=== PATIENT | male | born 1950 | race African-American/Black ===

== ENCOUNTER 2023-09-05 12:34 | Inpatient (IN) | payer OTHER, MEDICAID ==
[~2023-09-05] VITALS: Ht 175.3 cm; Wt 56.4 kg
[2023-09-05 12:49] LABS: Basophils # (auto) 0.1 10 ^3/uL (0-0.2); Basophils % (auto) 0.6 % (0.0-2.0); Eosinophils # (auto) 0 10 ^3/uL (0-0.8); Hemoglobin 15.2 g/dL (13.5-17.5); Lymphocytes # (auto) 0.7 10 ^3/uL (0.4-5.4); Lymphocytes % (auto) 8.3 % (10.0-50.0); Mean Corpuscular Hemoglobin 28.4 pg (28.0-32.0); Mean Corpuscular Hgb Conc. 33.7 g/dL (32.0-36.0); Mean Corpuscular Volume 84.2 fL (80.0-100.0); Monocytes # (auto) 0.5 10 ^3/uL (0-1.3); Monocytes % (auto) 5.1 % (0.0-12.0); Neutrophils # (auto) 7.7 10 ^3/uL (1.6-8.6); Red Blood Cells 5.35 10^6/uL (4.5-5.90); Red Cell Distribution Width 13.2 % (11.8-14.3)
[2023-09-05 13:15] VITALS: PULSE 72; RESP 20; O2SAT 99
[2023-09-05 13:22] LABS: Urine Bacteria FEW /hpf (None Seen); Urine Blood Negative /uL (Negative); Urine Clarity Clear (Clear); Urine Color Colorless (Yellow); Urine Protein, UAD TRACE (Negative); Urine Specific Gravity 1.009 (1.001-1.035); Urine Urobilinogen Normal (Negative); Urine WBC 2 /hpf (0 - 3); Urine pH 8.5 (5.0-8.0)
[2023-09-05] MEDS: NITROGLYCERIN 0.4 MG SL TAB SL ONE (13:24)
[2023-09-05] MEDS: ASPirin 325 MG TAB PO ONE (13:24)
[2023-09-05 13:43] LABS: Alanine Aminotransferase 25 U/L (7-40); Albumin 4.4 g/dL (3.2-4.8); Alkaline Phosphatase 112 U/L (46-116); Anion Gap 9 (5-15); Aspartate Aminotransferase 30 U/L (13-40); BUN/Creatinine Ratio 9.5 (10.0-20.0); Bilirubin, Total 0.7 mg/dL (0.2-1.0); Blood Urea Nitrogen 8 mg/dL (9-23); Calcium 10.6 mg/dL (8.7-10.4); Carbon Dioxide 24 mmol/L (20-30); Chloride 101 mmol/L (98-107); Glucose 204 mg/dL (74-106); Potassium 3.6 mmol/L (3.5-5.1); Sodium 134 mmol/L (136-145); Total Protein 7.5 g/dL (5.7-8.2)
[2023-09-05] MEDS: LABETALOL HCL 5 MG/ML 4ML SYRINGE IV ONE (15:03)
[2023-09-05] MEDS ORDERED: NITROGLYCERIN 0.4 MG SL TAB SL PRN (18:00)
[2023-09-05] MEDS ORDERED: DEXTROSE (50%) 50ML SYRG IV PRN (18:00)
[2023-09-05] MEDS: cloNIDine HCL 0.1 MG TAB PO PRN (18:03)
[2023-09-05] MEDS: ONDANSETRON HCL 4 MG/2 ML VIAL IV PRN (18:03)
[2023-09-05] MEDS: cefTRIAXone 1GM/50ML D5W 50 ML IV ONE (18:04)
[2023-09-05] MEDS: MORPHINE SULFATE INJ 2 MG/ml SYRG IV PRN ×2 (18:05→20:16)
[2023-09-05 18:33] LABS: Triglycerides 44 mg/dL (< 150)
[2023-09-05 18:34] LABS: LDL Cholesterol 45 mg/dL (< 100)
[2023-09-05 18:35] LABS: Cholesterol 137 mg/dL (< 200); HDL Cholesterol 83 mg/dL (40-59)
[2023-09-05] MEDS: IOHEXOL 350 MG/ML 100ML IJ ONE ×2 (19:51)
[2023-09-05 19:52] VITALS: PULSE 99; RESP 16; O2SAT 96
[2023-09-05] MEDS: LISINOPRIL 20 MG TAB PO SCH (20:15)
[2023-09-05] MEDS: hydrALAZINE HCL 20 MG/ML VL IV PRN (22:22)
[2023-09-05] MEDS: ACCU-CHEK COMFORT CURVE STRIP VI SCH (22:22)
[2023-09-05] MEDS: PANTOPRAZOLE 40 MG TAB PO SCH (22:22)
[2023-09-05] MEDS: ATORVASTATIN 20 MG TAB PO SCH (22:22)
[2023-09-05] MEDS: InsuLIN REG 1unit/0.01ml Soln (100units/ml) SC SCH (22:31)
[2023-09-06 05:00] VITALS: BP 122/82; PULSE 107; RESP 19; TEMP 99.1; O2SAT 95
[2023-09-06 05:53] LABS: Basophils # (auto) 0 10 ^3/uL (0-0.2); Basophils % (auto) 0.3 % (0.0-2.0); Eosinophils # (auto) 0 10 ^3/uL (0-0.8); Hematocrit 45.2 % (41.0-53.0); Hemoglobin 15.1 g/dL (13.5-17.5); Lymphocytes # (auto) 0.7 10 ^3/uL (0.4-5.4); Lymphocytes % (auto) 4.9 % (10.0-50.0); Mean Corpuscular Hemoglobin 28.4 pg (28.0-32.0); Mean Corpuscular Hgb Conc. 33.4 g/dL (32.0-36.0); Mean Corpuscular Volume 85.1 fL (80.0-100.0); Monocytes # (auto) 1.3 10 ^3/uL (0-1.3); Monocytes % (auto) 8.4 % (0.0-12.0); Neutrophils % (auto) 86.4 % (37.0-80.0); Red Blood Cells 5.31 10^6/uL (4.5-5.90); Red Cell Distribution Width 13.2 % (11.8-14.3); White Blood Cell 15.1 10^3/uL (4.4-10.8)
[2023-09-06 06:12] LABS: Anion Gap 8 (5-15); Carbon Dioxide 26 mmol/L (20-30); Chloride 99 mmol/L (98-107); Potassium 3.6 mmol/L (3.5-5.1); Sodium 133 mmol/L (136-145)
[2023-09-06 06:13] LABS: Calcium 9.9 mg/dL (8.5-10.1)
[2023-09-06 06:19] LABS: BUN/Creatinine Ratio 8.6 (10.0-20.0); Blood Urea Nitrogen 8 mg/dL (9-23); Glucose 131 mg/dL (74-106)
[2023-09-06 08:00] VITALS: PULSE 108
[2023-09-06 08:40] VITALS: BP 134/84; PULSE 106; RESP 15; TEMP 98.6; O2SAT 98
[2023-09-06] MEDS: ENOXAPARIN SOD 40 MG/0.4 ML SYRINGE SC SCH (08:57)
[2023-09-06] MEDS: ASPirin 81 mg TAB PO SCH (08:58)
[2023-09-06 16:50] VITALS: BP 137/90; PULSE 115; RESP 16; TEMP 99.5; O2SAT 97
[2023-09-06 20:00] VITALS: PULSE 117; PULSE 120; RESP 16
[2023-09-06 23:59] VITALS: BP 127/85; PULSE 114; RESP 18; TEMP 98; O2SAT 97
[2023-09-07] VITALS (7 sets, daily range): BP systolic 103–114; BP diastolic 69–82; PULSE 72–116; RESP 14–20; TEMP 98.4–98.6; O2SAT 96–100
[2023-09-07 06:47] LABS: Basophils # (auto) 0 10 ^3/uL (0-0.2); Basophils % (auto) 0.2 % (0.0-2.0); Eosinophils # (auto) 0 10 ^3/uL (0-0.8); Hematocrit 45.9 % (41.0-53.0); Hemoglobin 14.9 g/dL (13.5-17.5); Lymphocytes # (auto) 1.1 10 ^3/uL (0.4-5.4); Lymphocytes % (auto) 5.3 % (10.0-50.0); Mean Corpuscular Hemoglobin 27.6 pg (28.0-32.0); Mean Corpuscular Hgb Conc. 32.5 g/dL (32.0-36.0); Mean Corpuscular Volume 84.8 fL (80.0-100.0); Monocytes # (auto) 1.7 10 ^3/uL (0-1.3); Monocytes % (auto) 8.4 % (0.0-12.0); Neutrophils # (auto) 17.3 10 ^3/uL (1.6-8.6); Neutrophils % (auto) 86.1 % (37.0-80.0); Red Blood Cells 5.41 10^6/uL (4.5-5.90); Red Cell Distribution Width 13.5 % (11.8-14.3); White Blood Cell 20.1 10^3/uL (4.4-10.8)
[2023-09-07 06:59] LABS: INR 1.15 (0.9-1.15); Partial Thromboplastin Time 39.3 SEC (24.5-34.5)
[2023-09-07 07:02] LABS: Alanine Aminotransferase 15 U/L (7-40); Alkaline Phosphatase 99 U/L (46-116); Anion Gap 6 (5-15); Aspartate Aminotransferase 21 U/L (13-40); BUN/Creatinine Ratio 14.5 (10.0-20.0); Blood Urea Nitrogen 18 mg/dL (9-23); Calcium 9.9 mg/dL (8.5-10.1); Carbon Dioxide 27 mmol/L (20-30); Chloride 98 mmol/L (98-107); Glucose 118 mg/dL (74-106); Sodium 131 mmol/L (136-145)
[2023-09-07 07:03] LABS: Bilirubin, Total 1.1 mg/dL (0.2-1.0); Total Protein 7.1 g/dL (5.7-8.2)
[2023-09-07] MEDS: SUCRALFATE 1 GM/10 ML ORAL SUSP PO SCH (07:30)
[2023-09-07] MEDS ORDERED: CLINIMIX PER PHARMACY 0 ML IV SCH (16:00)
[2023-09-07 20:01] LABS: Magnesium 2.1 mg/dL (1.6-2.6)
[2023-09-07] MEDS: AMINO ACID INFUSION IN D10W 1,000 ML IV SCH (20:45)
[2023-09-07 20:46] LABS: Phosphorus 3.8 mg/dL (2.4-5.1)
[2023-09-07] MEDS: PIPERACILLIN-TAZOB 3.375GM 100 ML IV SCH (21:13)
[2023-09-08 04:00] VITALS: BP 104/72; PULSE 92; RESP 21; TEMP 98.2; O2SAT 98
[2023-09-08 07:07] LABS: Alanine Aminotransferase 33 U/L (7-40); Albumin 3.8 g/dL (3.2-4.8); Alkaline Phosphatase 90 U/L (46-116); Anion Gap 7 (5-15); Aspartate Aminotransferase 46 U/L (13-40); BUN/Creatinine Ratio 22.3 (10.0-20.0); Bilirubin, Total 0.8 mg/dL (0.2-1.0); Carbon Dioxide 25 mmol/L (20-30); Chloride 97 mmol/L (98-107); Glucose 130 mg/dL (74-106); Lipase 39 U/L (12-53); Magnesium 2.2 mg/dL (1.6-2.6); Phosphorus 3.1 mg/dL (2.4-5.1); Potassium 3.5 mmol/L (3.5-5.1); Sodium 129 mmol/L (136-145); Total Protein 6.9 g/dL (5.7-8.2)
[2023-09-08 07:08] LABS: Blood Urea Nitrogen 29 mg/dL (9-23)
[2023-09-08 07:11] LABS: Basophils # (auto) 0 10 ^3/uL (0-0.2); Basophils % (auto) 0.2 % (0.0-2.0); Eosinophils # (auto) 0 10 ^3/uL (0-0.8); Eosinophils % (auto) 0.3 % (0.0-7.0); Hematocrit 41.6 % (41.0-53.0); Hemoglobin 13.8 g/dL (13.5-17.5); Lymphocytes # (auto) 1.1 10 ^3/uL (0.4-5.4); Lymphocytes % (auto) 7.5 % (10.0-50.0); Mean Corpuscular Hemoglobin 28.3 pg (28.0-32.0); Mean Corpuscular Hgb Conc. 33.3 g/dL (32.0-36.0); Mean Corpuscular Volume 85.2 fL (80.0-100.0); Monocytes # (auto) 1.2 10 ^3/uL (0-1.3); Monocytes % (auto) 8.5 % (0.0-12.0); Neutrophils % (auto) 83.5 % (37.0-80.0); Red Blood Cells 4.88 10^6/uL (4.5-5.90); Red Cell Distribution Width 13.2 % (11.8-14.3); White Blood Cell 14.4 10^3/uL (4.4-10.8)
[2023-09-08 07:30] VITALS: BP 105/69; PULSE 76; PULSE 93; TEMP 36.8
[2023-09-08] MEDS: BUPIVACAINE 0.25% INJ 50ML VIAL ONE (07:51)
[2023-09-08] MEDS: LIDOCAINE 1% HCL (LOCAL ANESTH.) INJ 20ML MDV ONE (07:51)
[2023-09-08] MEDS: ceFAZolin 1GM/50ML 50 ML IV ONE (07:59)
[2023-09-08] MEDS: SUCCINYLCHOLINE CHLORIDE 20 MG/ML 10ML VIAL IV ONE (08:10)
[2023-09-08] MEDS ORDERED: MIDAZOLAM HCL 2MG/2ML 2ml VIAL (1mg/ml) ONE (08:11)
[2023-09-08] MEDS ORDERED: fentaNYL CITRATE 100 MCG/2 ML VL ONE (08:11)
[2023-09-08] MEDS ORDERED: ROCURONIUM 10MG/ML 10ML VIAL IV ONE (08:14)
[2023-09-08] MEDS ORDERED: ETOMIDATE (2MG/ML) 20ML VIAL IV ONE (08:18)
[2023-09-08] MEDS ORDERED: HYDROCORTISONE SOD SUCC 100 MG/2ML INJ VIAL ONE (08:28)
[2023-09-08] MEDS ORDERED: NEOSTIGMINE 1 MG/ML INJ (10mg/10ML VIAL) ONE (09:25)
[2023-09-08] MEDS ORDERED: ONDANSETRON HCL 4 MG/2 ML VIAL ONE (09:28)
[2023-09-08] MEDS: BUPIVACAINE 0.25% INJ 50ML VIAL IJ ONE (09:39)
[2023-09-08 10:53] VITALS: BP 122/74; PULSE 89; RESP 19; TEMP 98.4; O2SAT 94
[2023-09-08] MEDS: PANTOPRAZOLE 40 MG TAB PO SCH (12:44)
[2023-09-08] MEDS ORDERED: HYDROmorphone HCL 2 MG/ML VL/or syr IV PRN ×2 (15:30)
[2023-09-08] MEDS ORDERED: ONDANSETRON HCL 4 MG/2 ML VIAL IV PRN (15:30)
[2023-09-08 17:14] VITALS: BP 108/70; PULSE 88; RESP 20; TEMP 98.2; O2SAT 98
[2023-09-08 20:00] VITALS: BP 131/82; PULSE 85; PULSE 86; RESP 18; TEMP 97.8; O2SAT 96
[2023-09-08 22:00] VITALS: BP 131/82; PULSE 85; TEMP 97.8; O2SAT 96
[2023-09-09] VITALS (7 sets, daily range): BP systolic 103–116; BP diastolic 66–84; PULSE 70–91; RESP 18–22; TEMP 97.9–98.7; O2SAT 93–98
[2023-09-09 06:56] LABS: Basophils # (auto) 0 10 ^3/uL (0-0.2); Basophils % (auto) 0.2 % (0.0-2.0); Eosinophils # (auto) 0 10 ^3/uL (0-0.8); Eosinophils % (auto) 0.3 % (0.0-7.0); Hematocrit 39.2 % (41.0-53.0); Lymphocytes % (auto) 11.6 % (10.0-50.0); Mean Corpuscular Hemoglobin 28.2 pg (28.0-32.0); Mean Corpuscular Hgb Conc. 33.3 g/dL (32.0-36.0); Mean Corpuscular Volume 84.7 fL (80.0-100.0); Monocytes # (auto) 0.8 10 ^3/uL (0-1.3); Monocytes % (auto) 9.2 % (0.0-12.0); Neutrophils # (auto) 6.7 10 ^3/uL (1.6-8.6); Neutrophils % (auto) 78.7 % (37.0-80.0); Red Blood Cells 4.62 10^6/uL (4.5-5.90); Red Cell Distribution Width 13.1 % (11.8-14.3); White Blood Cell 8.5 10^3/uL (4.4-10.8)
[2023-09-09 07:08] LABS: Alanine Aminotransferase 71 U/L (7-40); Albumin 3.5 g/dL (3.2-4.8); Alkaline Phosphatase 98 U/L (46-116); Anion Gap 7 (5-15); Aspartate Aminotransferase 100 U/L (13-40); BUN/Creatinine Ratio 17.6 (10.0-20.0); Blood Urea Nitrogen 18 mg/dL (9-23); Calcium 8.9 mg/dL (8.7-10.4); Carbon Dioxide 25 mmol/L (20-30); Chloride 98 mmol/L (98-107); Glucose 135 mg/dL (74-106); Magnesium 2.1 mg/dL (1.6-2.6); Potassium 3.3 mmol/L (3.5-5.1); Sodium 130 mmol/L (136-145)
[2023-09-09 07:09] LABS: Bilirubin, Total 0.6 mg/dL (0.2-1.0); Total Protein 6.3 g/dL (5.7-8.2)
[2023-09-09] MEDS: POTASSIUM CHL 20MEQ/100ML 100 ML IV ONE (12:45)
[2023-09-10] VITALS (7 sets, daily range): BP systolic 111–126; BP diastolic 58–85; PULSE 79–89; RESP 16–18; TEMP 97.7–98.4; O2SAT 94–100
[2023-09-10 06:07] LABS: Basophils # (auto) 0 10 ^3/uL (0-0.2); Basophils % (auto) 0.5 % (0.0-2.0); Eosinophils # (auto) 0.1 10 ^3/uL (0-0.8); Eosinophils % (auto) 1.9 % (0.0-7.0); Hematocrit 35.6 % (41.0-53.0); Hemoglobin 12.1 g/dL (13.5-17.5); Lymphocytes % (auto) 17.5 % (10.0-50.0); Mean Corpuscular Hemoglobin 28.6 pg (28.0-32.0); Mean Corpuscular Hgb Conc. 33.9 g/dL (32.0-36.0); Mean Corpuscular Volume 84.3 fL (80.0-100.0); Monocytes # (auto) 0.7 10 ^3/uL (0-1.3); Monocytes % (auto) 13.5 % (0.0-12.0); Neutrophils # (auto) 3.6 10 ^3/uL (1.6-8.6); Neutrophils % (auto) 66.6 % (37.0-80.0); Red Blood Cells 4.23 10^6/uL (4.5-5.90); Red Cell Distribution Width 12.7 % (11.8-14.3); White Blood Cell 5.4 10^3/uL (4.4-10.8)
[2023-09-10 06:17] LABS: Alanine Aminotransferase 96 U/L (7-40); Albumin 3.3 g/dL (3.2-4.8); Alkaline Phosphatase 99 U/L (46-116); Anion Gap 6 (5-15); Aspartate Aminotransferase 104 U/L (13-40); BUN/Creatinine Ratio 16.7 (10.0-20.0); Bilirubin, Total 0.6 mg/dL (0.2-1.0); Blood Urea Nitrogen 15 mg/dL (9-23); Calcium 8.7 mg/dL (8.7-10.4); Carbon Dioxide 26 mmol/L (20-30); Chloride 100 mmol/L (98-107); Glucose 114 mg/dL (74-106); Magnesium 1.9 mg/dL (1.6-2.6); Phosphorus 1.8 mg/dL (2.4-5.1); Potassium 3.2 mmol/L (3.5-5.1); Sodium 132 mmol/L (136-145); Total Protein 6.1 g/dL (5.7-8.2)
[2023-09-10] MEDS: POTASSIUM CHL 20 Meq TABLET PO ONE (16:19)
[2023-09-11 05:00] VITALS: BP 115/73; PULSE 81; RESP 20; TEMP 98.2; O2SAT 98
[2023-09-11 05:58] LABS: Basophils # (auto) 0 10 ^3/uL (0-0.2); Basophils % (auto) 0.6 % (0.0-2.0); Eosinophils # (auto) 0.1 10 ^3/uL (0-0.8); Eosinophils % (auto) 2.9 % (0.0-7.0); Hematocrit 34.9 % (41.0-53.0); Hemoglobin 11.8 g/dL (13.5-17.5); Lymphocytes # (auto) 1.2 10 ^3/uL (0.4-5.4); Lymphocytes % (auto) 22.9 % (10.0-50.0); Mean Corpuscular Hemoglobin 28.6 pg (28.0-32.0); Mean Corpuscular Hgb Conc. 33.9 g/dL (32.0-36.0); Mean Corpuscular Volume 84.6 fL (80.0-100.0); Monocytes # (auto) 0.7 10 ^3/uL (0-1.3); Monocytes % (auto) 14.1 % (0.0-12.0); Neutrophils # (auto) 3.1 10 ^3/uL (1.6-8.6); Neutrophils % (auto) 59.5 % (37.0-80.0); Nucleated Red Blood Cells % 0.1 %; Red Blood Cells 4.13 10^6/uL (4.5-5.90); Red Cell Distribution Width 12.7 % (11.8-14.3); White Blood Cell 5.1 10^3/uL (4.4-10.8)
[2023-09-11 06:09] LABS: Chloride 103 mmol/L (98-107); Potassium 3.7 mmol/L (3.5-5.1); Sodium 133 mmol/L (136-145)
[2023-09-11 06:10] LABS: Anion Gap 7 (5-15); Calcium 8.8 mg/dL (8.7-10.4); Carbon Dioxide 23 mmol/L (20-30)
[2023-09-11 06:15] LABS: BUN/Creatinine Ratio 14.1 (10.0-20.0); Blood Urea Nitrogen 11 mg/dL (9-23); Glucose 86 mg/dL (74-106)
[2023-09-11 08:00] VITALS: PULSE 78; PULSE 81; RESP 17; O2SAT 99
[2023-09-11 09:00] VITALS: BP 140/83; PULSE 78; RESP 17; TEMP 98.3; O2SAT 99
[2023-09-11 13:00] VITALS: BP 115/80; PULSE 83; RESP 16; TEMP 98.2; O2SAT 99
[2023-09-11 17:00] VITALS: BP 129/89; PULSE 81; RESP 17; TEMP 98.2; O2SAT 98
[2023-09-11 20:00] VITALS: PULSE 77; PULSE 82; RESP 17; O2SAT 98
[2023-09-12 05:00] VITALS: BP_SYST 120; BP_SYST 139; BP_DIAS 57; BP_DIAS 91; PULSE 79; PULSE 83; RESP 18; RESP 20; TEMP 97.8; TEMP 98.1; O2SAT 100; O2SAT 98
[2023-09-12 08:00] VITALS: PULSE 70; RESP 16; O2SAT 99
[2023-09-12 09:05] VITALS: BP 143/91; PULSE 87; RESP 17; TEMP 98; O2SAT 100
[2023-09-12 10:58] VITALS: BP 143/91; PULSE 76; TEMP 36.7
== END 2023-09-12 12:00 | disposition home or self-care (01) | DRG 417 ==
LOC: ER 12:34 → TELE 17:51 → TELE-CENTR 22:36
PROVIDERS: ADMIT Hospitalist; ATTEND Internal Medicine
PROC: 0FT44ZZ Resection of Gallbladder, Percutaneous Endoscopic Approach (ICD-10-PCS; principal; 2023-09-08 08:11)
DX: K80.00 Calculus of gallbladder with acute cholecystitis without obstruction (principal); K65.1 Peritoneal abscess; I11.0 Hypertensive heart disease with heart failure; E11.9 Type 2 diabetes mellitus without complications; I77.810 Thoracic aortic ectasia; I50.9 Heart failure, unspecified; Z83.3 Family history of diabetes mellitus; Z82.49 Family history of ischemic heart disease and other diseases of the circulatory system
CPT/HCPCS: 36415; 71045; 71275; 74181; 76705; 80048; 80053; 80061; 81001; 82962; 83036; 83690; 83735; 84100; 84484; 85025; 85610; 85730; 86850; 86900; 86901; 93005; 93306; 97110; 97116; 97163; 97530; G0378; J0330; J1815; J2001; J2250; J2405; J2543; J3480; J3490

== ENCOUNTER 2024-07-09 15:55 | Emergency (ER) | payer OTHER, MEDICAID ==
[~2024-07-09] VITALS: Ht 182.9 cm; Wt 49.6 kg
--- NOTE | 2024-07-09 16:51 | DVH ---
XY CHEST PORTABLE, HISTORY: weak COMPARISON: XY CHEST PORTABLE on DOS: 09/05/23 XY CHEST PORTABLE on DOS: 09/05/23 TECHNICAL DATA: 1 view of the chest was obtained. FINDINGS: Lines and tubes: None Cardiomediastinal silhouette: normal Pulmonary vasculature: normal Lung expansion: Increased Lung airspace: Left perihilar airspace opacity. Lung interstitium: normal Pleura: normal Pneumothorax: no Bones: Unremarkable Other: no IMPRESSION: Left perihilar airspace opacity could be pneumonia.
[2024-07-09 16:54] VITALS: BP 107/73; PULSE 100; RESP 20; O2SAT 100
--- NOTE | 2024-07-09 17:03 | ED.PDOC ---
History of Present Illness HPI Comments 74y M who presents to the ED for chief complaint of generalized weakness. Per pt , pt has history of lung cancer and [facility] [place] and states since pt last radiation treatment on Jun 20, 2024, pt has been getting progressively worse at home. Pt has been having malaise, fever, cough, headache, and decreased appetite since and getting progressively worse since. Pt states pt has also had limited appetite and states over the past few days, he has only been able to eat "4-5 bites." Pt also states pt had radiation treatment but missed treatments on July 07 due to increased malaise and weakness. Pt otherwise has stable vitals in the ED. Pt otherwise denies any other symptoms at this time. Chief Complaint: Flu like Time Seen by MD: 16:04 Primary Care Provider: NONE Reviewed Notes: Nurses Notes Allergies: Coded Allergies: NO KNOWN ALLERGIES (Unverified , 09/05/23) Home Meds Unable to Obtain Active Prescriptions or Reported Meds Information Source: Patient, Spouse Mode of Arrival: Ambulatory Past Medical History PAST MEDICAL HISTORY: CHF, DM, HTN Family History Family History: Reviewed,noncontributory to illness Social History Smoker: Non-Smoker Alcohol: Denies ETOH Use Drugs: Denies Drug Use Lives In: Home Constitutional: reports: fatigue, malaise, weakness; denies: chills, diaphoresis, fever, sweats, others EENTM: denies: blurred vision, double vision, ear bleeding, ear discharge, ear drainage, ear pain, ear ringing, eye pain, eye redness, hearing loss, mouth pain, mouth swelling, nasal discharge, nose bleeding, nose congestion, nose pain, photophobia, tearing, throat pain, throat swelling, voice changes, others Respiratory: reports: cough; denies: hemoptysis, orthopnea, SOB at rest, shortness of breath, SOB with excertion, stridor, wheezing, others Cardiovascular: denies: chest pain, dizzy spells, diaphoresis, Dyspnea on exertion, edema, irregular heart beat, left arm pain, lightheadedness, palpitations, PND, syncope, others Gastrointestinal: denies: abdomen distended, abdominal pain, blood streaked bowels, constipated, diarrhea, dysphagia, difficulty swallowing, hematemesis, melena, nausea, poor appetite, poor fluid intake, rectal bleeding, rectal pain, vomiting, others Genitourinary: denies: burning, dysuria, flank pain, frequency, hematuria, incontinence, penile discharge, penile sore, pain, testicle pain, testicle swelling, urgency, others Neurological: reports: headache; denies: dizziness, fainting, left sided numbness, left sided weakness, numbness, paresthesia, pre-existing deficit, right sided numbness, right sided weakness, seizure, speech problems, tingling, tremors, weakness, others Musculoskeletal: denies: back pain, gout, joint pain, joint swelling, muscle pain, muscle stiffness, neck pain, others Integumetry: denies: bruises, change in color, change in hair/nails, dryness, laceration, lesions, lumps, rash, wounds, others Allergic/Immunocompromised: denies: Difficulty Healing, Frequent Infections, Hives, Itching, others Hematologic/Lymphatic: denies: anemia, blood clots, easy bleeding, easy bruising, swollen glands, others Endocrine: denies: excessive hunger, excessive sweating, excessive thirst, excessive urination, flushing, intolerance to cold, intolerance to heat, unexplained weight gain, unexplained weight loss, others Psychiatric: denies: anxiety, bipolar disorder, depression, hopeless, panic disorder, schizophrenia, sleepless, suicidal, others All Other Systems: Reviewed and Negative Physical Exam General Appearance: Other (Thin elderly male, tired appearing, in no significant distress otherwise) HEENT: Normal ENT Inspection, Pharynx Normal, TMs Normal Neck: Full Range of Motion, Non-Tender, Normal, Normal Inspection Respiratory: Chest Non-Tender, Lungs Clear, No Accessory Muscle Use, No Respiratory Distress, Normal Breath Sounds Cardiovascular: No Edema, Normal Peripheral Pulses, Regular Rate/Rhythm Breast Exam: Deferred Gastrointestinal: Non Tender, Normal Bowel Sounds, Soft Genitalia: Deferred Pelvic: Deferred Rectal: Deferred Extremities: No calf tenderness, Normal capillary refill, Normal inspection, Normal range of motion, Non-tender, No pedal edema Musculoskeletal : Apperance: Normal Neurologic: Alert, quantitative analyst developer II-XII nml as Tested, No Motor Deficits, Normal Affect, Normal Mood, No Sensory Deficits Cerebellar Function: NOT DONE Reflexes: NOT DONE Skin: Dry, Normal Color, Warm Lymphatic: No Adenopathy Was a procedure done? Was a procedure done?: No Differential Dx Considerations may include: dehydration, anemia, sepsis, URI, PNA, urosepsis, generalized weakness, X-Ray, Labs, Meds, VS Vital Signs Date Time Temp Pulse Resp B/P (MAP) Pulse Ox O2 Delivery O2 Flow Rate FiO2 07/09/24 16:54 99.0 100 20 107/73 (84) 100 Lab Test 07/09/24 16:48 Range/Units White Blood Count 6.8 4.4-10.8 10^3/uL Red Blood Count 5.18 4.5-5.90 10^6/uL Hemoglobin 14.2 13.5-17.5 g/dL Hematocrit 41.3 41.0-53.0 % Mean Corpuscular Volume 79.7 L 80.0-100.0 fL Mean Corpuscular Hemoglobin 27.4 L 28.0-32.0 pg Mean Corpuscular Hemoglobin Concent 34.3 32.0-36.0 g/dL Red Cell Distribution Width 13.8 11.8-14.3 % Platelet Count 280 140-450 10^3/uL Mean Platelet Volume 7.5 6.9-10.8 fL Neutrophils (%) (Auto) 73.2 37.0-80.0 % Lymphocytes (%) (Auto) 15.4 10.0-50.0 % Monocytes (%) (Auto) 10.0 0.0-12.0 % Eosinophils (%) (Auto) 0.9 0.0-7.0 % Basophils (%) (Auto) 0.5 0.0-2.0 % Neutrophils # (Auto) 5.0 1.6-8.6 10 ^3/uL Lymphocytes # (Auto) 1.1 0.4-5.4 10 ^3/uL Monocytes # (Auto) 0.7 0-1.3 10 ^3/uL Eosinophils # (Auto) 0.1 0-0.8 10 ^3/uL Basophils # (Auto) 0 0-0.2 10 ^3/uL Nucleated Red Blood Cells 0.1 % Sodium Level 135 L 136-145 mmol/L Potassium Level 4.2 3.5-5.1 mmol/L Chloride Level 101 98-107 mmol/L Carbon Dioxide Level 31 20-31 mmol/L Anion Gap 3 L 5-15 Blood Urea Nitrogen 11 9-23 mg/dL Creatinine 1.12 0.700-1.30 mg/dL Glomerular Filtration Rate Calc 69 >90 mL/min BUN/Creatinine Ratio 9.8 L 10.0-20.0 Serum Glucose 143 H 74-106 mg/dL Lactic Acid Level 1.8 0.4-2.0 mmol/L Calcium Level 10.2 8.7-10.4 mg/dL Total Bilirubin 0.4 0.2-1.0 mg/dL Direct Bilirubin 0.2 <0.3 mg/dL Aspartate Amino Transferase (AST) 27 13-40 U/L Alanine Aminotransferase (ALT) 24 7-40 U/L Alkaline Phosphatase 168 H 46-116 U/L Troponin I High Sensitivity 5 </=54 ng/L B-Type Natriuretic Peptide 84.00 0-100 pg/mL Total Protein 7.6 5.7-8.2 g/dL Albumin 4.2 3.2-4.8 g/dL Lipase 55 H 12-53 U/L Thyroid Stimulating Hormone (TSH) 0.74 0.55-4.78 uIU/mL [place] [id number] Ph: [phone] DIAGNOSTIC IMAGING Diagnostic Imaging Report : [id number] Signed PATIENT: EMILY SCOTT ACCT: [id number] UNIT: [id number] : 1950 LOC: ER ROOM / BED: / AGE / SEX: 74 / M ADM STATUS: REG ER SERVICE [id number] ORDERING PHYSICIAN: EMIR HOFF MD PROCEDURE(s): CXRP - CHEST PORTABLE REASON: weak ORDER NUMBER(s): [id number], ACCESSION NUMBER(s): [id number] XY CHEST PORTABLE, HISTORY: weak COMPARISON: XY CHEST PORTABLE on DOS: 09/05/23 XY CHEST PORTABLE on DOS: 09/05/23 TECHNICAL DATA: 1 view of the chest was obtained. FINDINGS: Lines and tubes: None Cardiomediastinal silhouette: normal Pulmonary vasculature: normal Lung expansion: Increased Lung airspace: Left perihilar airspace opacity. Lung interstitium: normal Pleura: normal Pneumothorax: no Bones: Unremarkable Other: no IMPRESSION: Left perihilar airspace opacity could be pneumonia. ATED BY: CRISTIAN BARBER MD DICTATED DATE/TIME: 07/09/241654 SIGNED BY: CRISTIAN BARBER MD SIGNED DATE/TIME: 07/09/241654 CC: X-Ray, Labs, Meds, VS Comment 74-year-old male with a history of lung cancer last received chemo approximately three weeks ago but has since opted out of receiving further chemo here today for generalized weakness and failure to thrive. Labs overall reassuring without evidence of significant leukocytosis to suggest an infection, significant anemia to require a transfusion, nor evidence of new renal dysfunction. I had ordered Zofran, morphine and saline for the patient however the patient and his partner stated they wanted to leave the hospital and instead go to [facility] where the patient receives all of his care. I informed them that my plan would be to admit the patient to the hospital for hydration and further workup of his weakness such as cultures but they still stated that they would prefer to leave regardless of the risks of potential further deterioration and even . They stated that they are driving straight to the [facility] from here. The patient then left the hospital with his partner against medical advice. Time of 1ST Reevaluation: 16:35 Reevaluation 1ST: Unchanged Patient Education/Counseling: Diagnosis, Treatment, Prognosis, Need For Follow Up Family Education/Counseling: Diagnosis, Treatment, Prognosis, Need For Follow Up Departure 1 Departure Time of Disposition: 20:38 Impression: Primary Impression: Failure to thrive Additional Impression: History of lung cancer Disposition: 07 LEFT AGAINST MEDICAL ADVICE Condition: Guarded e-Prescriptions Unable to Obtain Active Prescriptions or Reported Meds Discharged With: Self, Relative Critical Care Note Critical Care Time?: No Stability Stability form required: No Heart Score Heart Score: Heart Score Response (Comments) Value History N/A 0 EKG N/A 0 Age N/A 0 Risk Factors N/A 0 Troponin N/A 0 Total 0 I personally scribed for ER ([email or web address]) on 07/09/24 at 17:27. Electronically submitted by Mindy Maradiaga ([email or web address]). EMIR HOFF MD Jul 09, 2024 17:03 ER Jul 09, 2024 17:27
[2024-07-09 17:32] LABS: Basophils # (auto) 0 10 ^3/uL (0-0.2); Basophils % (auto) 0.5 % (0.0-2.0); Eosinophils # (auto) 0.1 10 ^3/uL (0-0.8); Eosinophils % (auto) 0.9 % (0.0-7.0); Hematocrit 41.3 % (41.0-53.0); Hemoglobin 14.2 g/dL (13.5-17.5); Lymphocytes # (auto) 1.1 10 ^3/uL (0.4-5.4); Lymphocytes % (auto) 15.4 % (10.0-50.0); Mean Corpuscular Hemoglobin 27.4 pg (28.0-32.0); Mean Corpuscular Hgb Conc. 34.3 g/dL (32.0-36.0); Mean Corpuscular Volume 79.7 fL (80.0-100.0); Monocytes # (auto) 0.7 10 ^3/uL (0-1.3); Neutrophils % (auto) 73.2 % (37.0-80.0); Nucleated Red Blood Cells % 0.1 %; Platelet Count (auto) 280 10^3/uL (140-450); Red Blood Cells 5.18 10^6/uL (4.5-5.90); Red Cell Distribution Width 13.8 % (11.8-14.3); White Blood Cell 6.8 10^3/uL (4.4-10.8)
[2024-07-09 17:45] LABS: Alanine Aminotransferase 24 U/L (7-40); Albumin 4.2 g/dL (3.2-4.8); Anion Gap 3 (5-15); Aspartate Aminotransferase 27 U/L (13-40); BUN/Creatinine Ratio 9.8 (10.0-20.0); Blood Urea Nitrogen 11 mg/dL (9-23); Calcium 10.2 mg/dL (8.7-10.4); Carbon Dioxide 31 mmol/L (20-31); Chloride 101 mmol/L (98-107); Potassium 4.2 mmol/L (3.5-5.1)
[2024-07-09 17:46] LABS: Bilirubin, Total 0.4 mg/dL (0.2-1.0); Total Protein 7.6 g/dL (5.7-8.2)
[2024-07-09 18:05] LABS: Alkaline Phosphatase 168 U/L (46-116); Glucose 143 mg/dL (74-106); Sodium 135 mmol/L (136-145)
[2024-07-09 18:13] LABS: Bilirubin, Direct 0.2 mg/dL (<0.3)
[2024-07-09] MEDS ORDERED: ONDANSETRON HCL 4 MG/2 ML VIAL IV ONE (18:45)
[2024-07-09] MEDS ORDERED: SODIUM CHLORIDE 0.9% 1,000 ML IV ONE (18:45)
[2024-07-09] MEDS ORDERED: MORPHINE SULFATE 4 MG/ML SYR/VIAL IV ONE (18:45)
== END 2024-07-09 20:41 | disposition left against medical advice (07) ==
LOC: ER 15:55
DX: R62.7 Adult failure to thrive (principal); I11.0 Hypertensive heart disease with heart failure; I50.9 Heart failure, unspecified; E11.9 Type 2 diabetes mellitus without complications; R53.1 Weakness; R53.81 Other malaise; R50.9 Fever, unspecified; R05.9 Cough, unspecified; R51.9 Headache, unspecified; Z85.118 Personal history of other malignant neoplasm of bronchus and lung
CPT/HCPCS: 36415; 71045; 80048; 80076; 83605; 83690; 83880; 84443; 84484; 85025

== ENCOUNTER 2024-09-03 15:35 | Inpatient (IN) | payer OTHER, MEDICAID ==
[~2024-09-03] VITALS: Ht 160 cm; Wt 62.9 kg
--- NOTE | 2024-09-03 15:40 | ED.PDOC ---
History of Present Illness HPI Comments 74-year-old male with PMHx Lung Cancer, COPD, DM, HTN, HLD presents with a chief complaint of SOB x 3 days. Patient was sating at 89% on room air according to EMS when they arrived on scene. Patient was given 3 albuterol treatments and reports improvement with his breathing. Patient is currently on a breathing treatment on arrival to ER. Patient was heard to have Rhonchi per EMS. Patient endorses smoking cigarettes and marijuana. No other symptoms or modifying factors present at this time. Chief Complaint: Shortness of Breath Time Seen by MD: 15:31 Primary Care Provider: NONE Reviewed Notes: Medications, Allergies Allergies: Coded Allergies: NO KNOWN ALLERGIES (Unverified , 09/05/23) Home Meds Unable to Obtain Active Prescriptions or Reported Meds Information Source: Patient, Emergency Med Personnel Mode of Arrival: EMS Severity: Moderate Timing: Days Duration: Since onset Prehospital treatment: Breathing Tx, Oxygen Past Medical History PAST MEDICAL HISTORY: Cancer, CHF, COPD, DM, High Lipids, HTN Surgical History: Cholecystectomy Surgical History (Other): CATARACTS Family History Family History: Reviewed,noncontributory to illness Social History Smoker: Cigarettes Alcohol: Denies ETOH Use Drugs: Marijuana Lives In: Home Constitutional: denies: chills, diaphoresis, fatigue, fever, malaise, sweats, weakness, others EENTM: denies: blurred vision, double vision, ear bleeding, ear discharge, ear drainage, ear pain, ear ringing, eye pain, eye redness, hearing loss, mouth pain, mouth swelling, nasal discharge, nose bleeding, nose congestion, nose pain, photophobia, tearing, throat pain, throat swelling, voice changes, others Respiratory: reports: shortness of breath; denies: cough, hemoptysis, orthopnea, SOB at rest, SOB with excertion, stridor, wheezing, others Cardiovascular: denies: chest pain, dizzy spells, diaphoresis, Dyspnea on exertion, edema, irregular heart beat, left arm pain, lightheadedness, palpitations, PND, syncope, others Gastrointestinal: denies: abdomen distended, abdominal pain, blood streaked bowels, constipated, diarrhea, dysphagia, difficulty swallowing, hematemesis, melena, nausea, poor appetite, poor fluid intake, rectal bleeding, rectal pain, vomiting, others Genitourinary: denies: burning, dysuria, flank pain, frequency, hematuria, incontinence, penile discharge, penile sore, pain, testicle pain, testicle swelling, urgency, others Neurological: denies: dizziness, fainting, headache, left sided numbness, left sided weakness, numbness, paresthesia, pre-existing deficit, right sided numbness, right sided weakness, seizure, speech problems, tingling, tremors, weakness, others Musculoskeletal: denies: back pain, gout, joint pain, joint swelling, muscle pain, muscle stiffness, neck pain, others Integumetry: denies: bruises, change in color, change in hair/nails, dryness, laceration, lesions, lumps, rash, wounds, others Allergic/Immunocompromised: denies: Difficulty Healing, Frequent Infections, Hives, Itching, others Hematologic/Lymphatic: denies: anemia, blood clots, easy bleeding, easy bruising, swollen glands, others Endocrine: denies: excessive hunger, excessive sweating, excessive thirst, excessive urination, flushing, intolerance to cold, intolerance to heat, unexplained weight gain, unexplained weight loss, others Psychiatric: denies: anxiety, bipolar disorder, depression, hopeless, panic disorder, schizophrenia, sleepless, suicidal, others All Other Systems: Reviewed and Negative Physical Exam General Appearance: Moderate Distress HEENT: Normal ENT Inspection, Pharynx Normal, TMs Normal Neck: Full Range of Motion, Non-Tender, Normal, Normal Inspection Respiratory: Chest Non-Tender, Decreased Breath Sounds, No Accessory Muscle Use, Respiratory Distress, Rhonchi, Wheezing Cardiovascular: No Edema, No JVD, No Murmur, No Gallop, Tachycardia Breast Exam: Deferred Gastrointestinal: No Organomegaly, Non Tender, No Pulsatile Mass, Normal Bowel Sounds, Soft Genitalia: Deferred Pelvic: Deferred Rectal: Deferred Extremities: No calf tenderness, Normal capillary refill, Normal inspection, Normal range of motion, Non-tender, No pedal edema Musculoskeletal : Apperance: Normal Neurologic: Alert, healthcare manager II-XII nml as Tested, No Motor Deficits, Normal Affect, Normal Mood, No Sensory Deficits Cerebellar Function: Normal Reflexes: Normal Skin: Dry, Normal Color, Warm Lymphatic: No Adenopathy Was a procedure done? Was a procedure done?: No EKG EKG : Pulse Rate (adult): 107 [place]: Normal Cardiac Rhythm: ST Block: None Hypertrophy: LAE ST: Normal Differential Dx Considerations may include: COPD, pneumonia, CHF X-Ray, Labs, Meds, VS Vital Signs Date Time Temp Pulse Resp B/P (MAP) Pulse Ox O2 Delivery O2 Flow Rate FiO2 09/03/24 20:17 22 92 Nasal Cannula* 3 32 09/03/24 20:16 103 20 92 Nasal Cannula* 3 32 09/03/24 20:00 98.0 103 20 112/76 (88) 92 98.0 09/03/24 18:37 25 Nasal Cannula* 2 28 09/03/24 18:36 98.0 103 25 107/70 (82) 94 98.0 09/03/24 18:32 103 25 94 Nasal Cannula* 2 28 09/03/24 15:50 107 09/03/24 15:46 28 95 Simple Mask* 10 99 09/03/24 15:43 97.3 109 28 163/101 (121) 95 09/03/24 15:40 107 Lab Test 09/03/24 17:04 09/03/24 16:03 Range/Units Lactic Acid Level 2.0 0.4-2.0 mmol/L White Blood Count 7.3 4.4-10.8 10^3/uL Red Blood Count 5.33 4.5-5.90 10^6/uL Hemoglobin 13.8 13.5-17.5 g/dL Hematocrit 41.8 41.0-53.0 % Mean Corpuscular Volume 78.3 L 80.0-100.0 fL Mean Corpuscular Hemoglobin 25.8 L 28.0-32.0 pg Mean Corpuscular Hemoglobin Concent 32.9 32.0-36.0 g/dL Red Cell Distribution Width 15.0 H 11.8-14.3 % Platelet Count 196 140-450 10^3/uL Mean Platelet Volume 7.5 6.9-10.8 fL Neutrophils (%) (Auto) 78.8 37.0-80.0 % Lymphocytes (%) (Auto) 12.2 10.0-50.0 % Monocytes (%) (Auto) 8.0 0.0-12.0 % Eosinophils (%) (Auto) 0.6 0.0-7.0 % Basophils (%) (Auto) 0.4 0.0-2.0 % Neutrophils # (Auto) 5.8 1.6-8.6 10 ^3/uL Lymphocytes # (Auto) 0.9 0.4-5.4 10 ^3/uL Monocytes # (Auto) 0.6 0-1.3 10 ^3/uL Eosinophils # (Auto) 0 0-0.8 10 ^3/uL Basophils # (Auto) 0 0-0.2 10 ^3/uL Nucleated Red Blood Cells 0.3 % Sodium Level 138 136-145 mmol/L Potassium Level 4.1 3.5-5.1 mmol/L Chloride Level 102 98-107 mmol/L Carbon Dioxide Level 27 20-31 mmol/L Anion Gap 9 5-15 Blood Urea Nitrogen 13 9-23 mg/dL Creatinine 0.82 0.700-1.30 mg/dL Glomerular Filtration Rate Calc 92 >90 mL/min BUN/Creatinine Ratio 15.9 10.0-20.0 Serum Glucose 113 H 74-106 mg/dL Calcium Level 9.8 8.7-10.4 mg/dL Current Medications Medications (Trade) Dose Ordered Sig/Xi Route Start Time Stop Time Status Last Admin Methylprednisolone Sodium Succinate (Solu Medrol) 125 mg ONCE ONCE IV 09/03/24 16:00 09/03/24 16:01 DC 09/03/24 18:09 Ceftriaxone Sodium 50 ml @ 100 mls/hr ONCE ONCE IV 09/03/24 16:30 09/03/24 16:59 DC 09/03/24 18:09 Albuterol (Ventolin Medneb) 2.5 mg ONCE ONCE NEB 09/03/24 20:15 09/03/24 20:16 DC 09/03/24 20:17 Ipratropium Dequincy (Atrovent Medneb) 0.5 mg ONCE ONCE NEB 09/03/24 20:15 09/03/24 20:16 DC 09/03/24 20:17 IV Hep-Lock was established The chest x-ray shows: IMPRESSION: 1. Infiltrates bilaterally with consolidation in the mid left chest. Infection versus neoplasm are both in the differential and follow-up studies are recommended. 2. Chronic changes are noted in the right and left shoulders. The family has arrived and they stated that the patient was not consistent with treatment for his lung cancer. He has been somewhat noncompliant so we are unaware of treatment of that he is receiving right now The patient was given Solu-Medrol 125 mg IV push The patient also received a breathing treatment upon arrival The patient was given Rocephin after blood cultures and a lactic acid level were done secondary to the possibility of pneumonia The CBC is within normal limits The chemistry panel is within normal limits The lactic acid level is 2.0 We were able to get the patient down from a simple mass to 3 L nasal cannula. We did speak with the hospitalist and the patient was being admitted at this time. Images Reviewed?: Images reviewed and evaluated by me Time of 1ST Reevaluation: 16:01 Reevaluation 1ST: Unchanged Patient Education/Counseling: Diagnosis, Treatment, Prognosis Family Education/Counseling: Diagnosis, Treatment, Prognosis Departure 1 Departure Time of Disposition: 20:46 Impression: Primary Impression: Acute respiratory failure Qualified Codes: J96.01 - Acute respiratory failure with hypoxia Additional Impressions: COPD exacerbation Lung cancer Qualified Codes: C34.90 - Malignant neoplasm of unspecified part of unspec ified bronchus or lung Disposition: 09 ADMITTED INPATIENT Admit to: [facility] Condition: Fair e-Prescriptions Unable to Obtain Active Prescriptions or Reported Meds Critical Care Note Critical Care Time?: Yes (45 min-critical care time only) Stability Stability form required: Yes Unstable for transfer: Telemetry monitoring (Telemetry monitoring required), ED Physician Assesment (Clinical assesment) Heart Score Heart Score: Heart Score Response (Comments) Value History Moderate Suspicious 1 EKG Normal 0 Age >65 2 Risk Factors >3 or Hx ASHD 2 Troponin Normal limit 0 Total 5 I personally scribed for ANASTASIA BENITEZ MD ([email or web address]) on 09/03/24 at 15:40. Electronically submitted by Harrison Chambers ([email or web address]). I personally scribed for ANASTASIA BENITEZ MD ([email or web address]) on 09/03/24 at 15:50. Electronically submitted by Harrison Chambers ([email or web address]). ANASTASIA BENITEZ MD Sep 03, 2024 15:40
--- NOTE | 2024-09-03 15:57 | ECG ---
[facility] Test Date: 2024-09-03 Test Time: 15:40:04 Pat Name: EMILY SCOTT Department: er Room: 0274T Gender: M [employer]: owen : 1950 Requested By: ANASTASIA BENITEZ Order Number: [id number] Reading MD: Bob Hernández Measurements Intervals [place] Rate: 107 P: 43 [place]: 132 QRS: 62 QRSD: 87 T: 106 QT: 363 QTc: 485 Interpretive Statements Sinus tachycardia Probable left atrial enlargement Borderline repolarization abnormality Borderline prolonged QT interval Electronically Signed On 09-06-2024 17:53:52 PST by Bob Hernández Please click the below link to view image of tracing.
[2024-09-03 16:18] LABS: Basophils # (auto) 0 10 ^3/uL (0-0.2); Basophils % (auto) 0.4 % (0.0-2.0); Eosinophils # (auto) 0 10 ^3/uL (0-0.8); Eosinophils % (auto) 0.6 % (0.0-7.0); Hematocrit 41.8 % (41.0-53.0); Hemoglobin 13.8 g/dL (13.5-17.5); Lymphocytes # (auto) 0.9 10 ^3/uL (0.4-5.4); Lymphocytes % (auto) 12.2 % (10.0-50.0); Mean Corpuscular Hemoglobin 25.8 pg (28.0-32.0); Mean Corpuscular Hgb Conc. 32.9 g/dL (32.0-36.0); Mean Corpuscular Volume 78.3 fL (80.0-100.0); Monocytes # (auto) 0.6 10 ^3/uL (0-1.3); Neutrophils # (auto) 5.8 10 ^3/uL (1.6-8.6); Neutrophils % (auto) 78.8 % (37.0-80.0); Nucleated Red Blood Cells % 0.3 %; Platelet Count (auto) 196 10^3/uL (140-450); Red Blood Cells 5.33 10^6/uL (4.5-5.90); White Blood Cell 7.3 10^3/uL (4.4-10.8)
[2024-09-03 16:23] LABS: Chloride 102 mmol/L (98-107); Potassium 4.1 mmol/L (3.5-5.1); Sodium 138 mmol/L (136-145)
[2024-09-03 16:24] LABS: Anion Gap 9 (5-15); Carbon Dioxide 27 mmol/L (20-31)
[2024-09-03 16:25] LABS: Calcium 9.8 mg/dL (8.7-10.4)
--- NOTE | 2024-09-03 16:27 | DVH ---
CHEST RADIOGRAPH Indication: sob Technique: Single frontal view of the chest was obtained Comparison: XY CHEST PORTABLE on DOS: 07/09/24, XY CHEST PORTABLE on DOS: 09/05/23 FINDINGS: Lines and Tubes: None Lungs: Bilateral airspace disease with consolidation in the mid left chest. Findings may represent i nfection or neoplasm. Recommend follow-up study. Pleura: No effusion. No pneumothorax. Cardiomediastinal contours: Unremarkable Bones: Chronic changes in both shoulders. IMPRESSION: 1. Infiltrates bilaterally with consolidation in the mid left chest. Infection versus neoplasm are nimo th in the differential and follow-up studies are recommended. 2. Chronic changes are noted in the right and left shoulders.
[2024-09-03 16:30] LABS: BUN/Creatinine Ratio 15.9 (10.0-20.0); Blood Urea Nitrogen 13 mg/dL (9-23)
[2024-09-03 16:31] LABS: Glucose 113 mg/dL (74-106)
[2024-09-03] MEDS: methylPREDNISolone SOD SUCC 125 MG/2 ML VL IV ONE (18:09)
[2024-09-03] MEDS: cefTRIAXone 1GM/50ML D5W 50 ML IV ONE (18:09)
[2024-09-03 18:32] VITALS: PULSE 103; RESP 25; O2SAT 94
[2024-09-03 20:16] VITALS: PULSE 103; RESP 20; O2SAT 92
[2024-09-03] MEDS: ALBUTEROL SULF 2.5 MG/0.5ML(0.5%) NEB SOLN NEB ONE (20:17)
[2024-09-03] MEDS: IPRATROPIUM BROM 0.5 MG/2.5ML INH SOL NEB ONE (20:17)
[2024-09-03] MEDS ORDERED: HYDROcodone-ACET 5/325MG TAB PO PRN (22:00)
[2024-09-03] MEDS ORDERED: MORPHINE SULFATE INJ 2 MG/ml SYRG IV PRN (22:00)
[2024-09-03] MEDS ORDERED: ACETAMINOPHEN 325 MG TAB PO PRN (22:00)
[2024-09-03] MEDS ORDERED: DOCUSATE SOD 100 MG CAP PO PRN (22:00)
[2024-09-03] MEDS ORDERED: ONDANSETRON HCL 4 MG/2 ML VIAL IV PRN (22:00)
[2024-09-03] MEDS ORDERED: NITROGLYCERIN 0.4 MG SL TAB SL PRN (22:00)
[2024-09-03] MEDS ORDERED: DEXTROSE (50%) 50ML SYRG IV PRN (22:30)
[2024-09-03] MEDS: DOXYCYCLINE 100MG/100ML 100 ML IV ONE (22:39)
[2024-09-03 22:44] VITALS: BP 112/76; PULSE 103; RESP 20; O2SAT 93
[2024-09-03] MEDS: methylPREDNISolone SOD SUCC 40 MG/ML VL IV SCH (23:06)
[2024-09-03 23:46] VITALS: PULSE 98; RESP 20; O2SAT 92; O2SAT 95
[2024-09-03] MEDS: IPRATROPIUM BROM 0.5 MG/2.5ML INH SOL NEB SCH (23:46)
[2024-09-03] MEDS: ALBUTEROL SULF 2.5 MG/0.5ML(0.5%) NEB SOLN NEB SCH (23:46)
--- NOTE | 2024-09-03 23:51 | DVHINCON2 ---
Date of service: Sep 03, 2024 Referring Physician Franck Stewart NP Reason for Consultation COPD exacerbation, hypoxia. History of Present Illness A 74-year-old man with past medical history of lung cancer, COPD, CHF, diabetes mellitus, hypertension and hyperlipidemia who presents to ED today via EMS with a chief complaint of SOB x 3 days. Per EMS, pt was satting at 89% on room air when they arrived on scene. He was given 3 albuterol treatments and noted improvement with his breathing. Per EMS, pt was noted to have rhonchi. Patient was started on breathing treatment on arrival to ER. He was admitted for further care, and pulmonary consultation is requested for evaluation and management of COPD exacerbation and hypoxia. Review of Systems: 14-point review of systems negative unless otherwise noted above. Past Medical History: Lung cancer, COPD, CHF, diabetes mellitus, hypertension and hyperlipidemia Past Surgical History: Cholecystectomy and cataracts. Medications: Reviewed. Allergies: No known drug allergies. Family History: No family history of premature CAD. No family history of lung disorders. Social History: Smoker - smokes cigarettes No alcohol use. Patient admits to marijuana use. Allergies: Coded Allergies: NO KNOWN ALLERGIES (Unverified , 09/05/23) Home Meds Active Scripts Cefdinir (Cefdinir) 300 Mg Cap, 1 CAP PO BID, #14 CAP Prov:BENJAMIN BROWN MD 09/05/24 Famotidine (Pepcid AC) 20 Mg Tab, 20 MG PO DAILY, #30 TAB Prov:BENJAMIN BROWN MD 09/05/24 Prednisone (Prednisone) 20 Mg Tab, 20 MG PO BID, #10 MG Prov:BENJAMIN BROWN MD 09/05/24 Albuterol Sulfate (Ventolin) 2.5 Mg/0.5 Ml Nb, 2.5 MG NEB Q4HR PRN, #30 EA Prov:BENJAMIN BROWN MD 09/05/24 Ipratropium [place] (Ipratropium [place]) 0.02 % Yue, 0.5 MG NEB Q4HR PRN, #30 EA Prov:BENJAMIN BROWN MD 09/05/24 Atorvastatin Calcium (ATORVASTATIN CALCIUM) 20 Mg Tab, 20 MG PO DAILY, #30 TAB Prov:BENJAMIN BROWN MD 09/05/24 Amlodipine Besylate (NORVASC TABLET) 5 Mg Tb, 5 MG PO DAILY, #30 TAB Prov:BENJAMIN BROWN MD 09/05/24 Current Medications Current Medications Medications (Trade) Dose Ordered Sig/Xi Route PRN Reason Start Time Stop Time Status Last Admin Docusate Sodium (Colace Capsule) 100 mg BIDPRN PRN PO FOR CONSTIPATION 09/03/24 22:00 Acetaminophen (Tylenol Tablet) 650 mg Q6HP PRN PO PAIN SCALE 1-3 OR TEMP>100.4 09/03/24 22:00 Acetaminophen/ Hydrocodone Bitart ([place] 5/325MG Tab) 1 tab Q4HP PRN PO MODERATE PAIN (4-6 PAIN SCALE) 09/03/24 22:00 Ondansetron HCl (Zofran) 4 mg Q4HP PRN IV NAUSEA / VOMITING 09/03/24 22:00 Enoxaparin Sodium (Lovenox) 40 mg DAILY SC 09/04/24 10:00 Nitroglycerin (Ntrostat Sublingual) 0.4 mg Q5MINP PRN SL FOR CHEST PAIN 09/03/24 22:00 Morphine Sulfate 2 mg Q30M PRN IV FOR CHEST PAIN 09/03/24 22:00 Albuterol (Ventolin Medneb) 2.5 mg Q4HR NEB 09/03/24 22:00 09/03/24 23:46 Ipratropium [place] (Atrovent Medneb) 0.5 mg Q4HR NEB 09/03/24 22:00 09/03/24 23:46 Methylprednisolone Sodium Succinate (Solu Medrol) 40 mg BID IV 09/03/24 22:00 09/03/24 23:06 Diagnostic Test (Pha) (Accu-Chek Comfort Curve T) 1 strip ACHS 09/04/24 07:00 Insulin Human Regular (InsuLIN R) ACHS SC 09/04/24 07:00 Dextrose 50 ml UD PRN IV Blood Sugar LESS THAN 60 09/03/24 22:30 Melatonin (Melatonin) 5 mg ONCE@2200 PO 09/04/24 22:00 Donepezil HCl (Aricept Tablet) 10 mg DAILY PO 09/04/24 10:00 Atorvastatin Calcium (Lipitor) 40 mg DAILY PO 09/04/24 10:00 Pantoprazole Sodium (Protonix) 40 mg DAILY IV 09/04/24 10:00 Amlodipine Besylate (Norvasc Tablet) 5 mg DAILY PO 09/04/24 10:00 Vital Signs Vital Signs Date Time Temp Pulse Resp B/P (MAP) Pulse Ox O2 Delivery O2 Flow Rate FiO2 09/03/24 22:44 103 20 112/76 93 3.0 32 09/03/24 20:17 Nasal Cannula* 09/03/24 20:00 98.0 98.0 Physical Exam Gen.: Patient lying in bed in no apparent distress. On supplemental oxygen. Head: Normocephalic, atraumatic. Eyes: EOMI/PERRLA. Ears: Normal hearing. Normal anatomy. Neck/trachea: Trachea midline, supple. Nose: Normal external anatomy. Mouth: Moist mucous membranes. Chest: Decreased air entry bilaterally. No wheezing or rhonchi. Cardiovascular: Positive S1, positive S2. Regular rate and rhythm. Abdomen: Positive bowel sounds in all 4 quadrants. Soft, non-tender, non-di stended. : Deferred. Rectal: Deferred. Skin: Warm, dry. Intact. Extremities: 2+ radial pulses bilaterally. No lower extremity edema. Neuro: Awake, alert, oriented x3. No gross motor or sensory deficits. Cranial nerves II through XII intact. Gait not assessed. Labs/Diagnostic Data Labs Test 09/03/24 17:04 09/03/24 16:03 Range/Units Lactic Acid Level 2.0 0.4-2.0 mmol/L White Blood Count 7.3 4.4-10.8 10^3/uL Red Blood Count 5.33 4.5-5.90 10^6/uL Hemoglobin 13.8 13.5-17.5 g/dL Hematocrit 41.8 41.0-53.0 % Mean Corpuscular Volume 78.3 L 80.0-100.0 fL Mean Corpuscular Hemoglobin 25.8 L 28.0-32.0 pg Mean Corpuscular Hemoglobin Concent 32.9 32.0-36.0 g/dL Red Cell Distribution Width 15.0 H 11.8-14.3 % Platelet Count 196 140-450 10^3/uL Mean Platelet Volume 7.5 6.9-10.8 fL Neutrophils (%) (Auto) 78.8 37.0-80.0 % Lymphocytes (%) (Auto) 12.2 10.0-50.0 % Monocytes (%) (Auto) 8.0 0.0-12.0 % Eosinophils (%) (Auto) 0.6 0.0-7.0 % Basophils (%) (Auto) 0.4 0.0-2.0 % Neutrophils # (Auto) 5.8 1.6-8.6 10 ^3/uL Lymphocytes # (Auto) 0.9 0.4-5.4 10 ^3/uL Monocytes # (Auto) 0.6 0-1.3 10 ^3/uL Eosinophils # (Auto) 0 0-0.8 10 ^3/uL Basophils # (Auto) 0 0-0.2 10 ^3/uL Nucleated Red Blood Cells 0.3 % Sodium Level 138 136-145 mmol/L Potassium Level 4.1 3.5-5.1 mmol/L Chloride Level 102 98-107 mmol/L Carbon Dioxide Level 27 20-31 mmol/L Anion Gap 9 5-15 Blood Urea Nitrogen 13 9-23 mg/dL Creatinine 0.82 0.700-1.30 mg/dL Glomerular Filtration Rate Calc 92 >90 mL/min BUN/Creatinine Ratio 15.9 10.0-20.0 Serum Glucose 113 H 74-106 mg/dL Calcium Level 9.8 8.7-10.4 mg/dL Assessment Impression: Acute hypoxic respiratory failure Dependence on supplemental oxygen COPD exacerbation Lung cancer Nicotine dependence Marijuana use. Plan: Supplemental oxygen Titrate to keep O2 sats above 92%. Continue bronchodilators. Continue antibiotics IV steroids Monitor renal function. Monitor electrolytes. Supplement as necessary. Monitor ins and outs. Smoking cessation discussed for greater than 10 minutes Counseled against marijuana use. DVT prophylaxis. Prognosis: Poor given patient's multiple co-morbidities. Rest of plan per hospitalist and other consultants. Thank you, LUIS Stewart, for allowing me to participate in this patient's care. Further recommendations will depend on the patient's clinical course. Please do not hesitate to contact me if you have any questions or concerns. This medical document was created using an electronic medical record system with [employer] system. Although these documentations are being carefully reviewed, there may still be some phonetic and typographical changes. The errors are purely typographical, due to imperfection on the software program, and do not reflect any compromise in the patient's medical care. Plan discussed with: Patient, Other (RN/LUIS Stewart/) EDY LEUNG MD Sep 03, 2024 23:51
[2024-09-03 23:56] VITALS: PULSE 102; RESP 20; O2SAT 98
[2024-09-04] VITALS (20 sets, daily range): BP systolic 121–131; BP diastolic 88–94; PULSE 76–112; RESP 16–22; TEMP 97.3–98.7; O2SAT 92–100
--- NOTE | 2024-09-04 02:16 | DVHHP2 ---
ETHAN FORD CASE CONSULTANT 09/04/24 0216: History of Present Illness Reason for Visit: Shortness of breath History of Present Illness Information in this HPI is limited due to the patient being a poor historian. It is acquired with the assistance of the patient's Amrita via telephone. 74-year-old male with past medical history of lung cancer, COPD, DM, HTN, presents with complaints of shortness of breath x2 weeks worsening over the p revious 3 days. Patient is not oxygen dependent at home. On arrival to the emergency department patient was on 10 L non-rebreather, receiving breathing treatments from EMS. Patient's oxygen saturation improved to 92% on 3-4 L nasal cannula. Patient was being treated for lung cancer at [facility]. 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 As per the patient's , patient completed radiation therapy on 08/21/2024. Has been assigned locally to follow with Oncology on rd. Patient's does not know the oncologist name. Patient's states patient does not want to continue with chemotherapy. At this time patient's states patient is declining hospice, however would like more information. there are no complaints of fevers, chills, dizziness, chest pain, nausea vomiting. 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 Heme/Onc: Cancer Smoke: <1 pack per day ALCOHOL: none Drugs: Marijuana Lives: with Family Review of Systems Constitutional: No: Fever, Chills, Sweats, Weakness, Malaise, Other Eyes: No: Pain, Vision change, Conjunctivae inflammation, Eyelid inflammation, Other, Redness ENT: No: Ear pain, Ear discharge, Nose pain, Nose discharge, Nose congestion, Mouth pain, Mouth swelling, Throat pain, Throat swelling, Other Respiratory: Shortness of breath; No: Cough, Dry, SOB with excertion, Wheezing, Hemoptysis, Pleuritic Pain, Sputum, Wheezing, Other Cardiovascular: No: Chest Pain, Palpitations, Orthopnea, Paroxysmal Noc. Dyspnea, Edema, Lt Headedness, Other Gastrointestinal: No: Nausea, Vomiting, Abdominal Pain, Diarrhea, Constipation, Melena, Hematochezia, Other Genitourinary: No Dysuria, No Frequency, No Incontinence, No Hematuria, No Retention, No Other Musculoskeletal: No: other, neck pain, shoulder pain, arm pain, back pain, hand pain, leg pain, foot pain Skin: No: Rash, Lesions, Jaundice, Bruising, Other Neurological: No: Weakness, Numbness, Incoordination, Change in speech, Confusion, Seizures, Other Allergies: Coded Allergies: NO KNOWN ALLERGIES (Unverified , 09/05/23) Medications Current Medications Medications Dose Ordered Sig/Xi Route Start Time Stop Time Status Last Admin Dose Admin Docusate Sodium 100 mg BIDPRN PRN PO 09/03/24 22:00 Acetaminophen 650 mg Q6HP PRN PO 09/03/24 22:00 Acetaminophen/ Hydrocodone Bitart 1 tab Q4HP PRN PO 09/03/24 22:00 Ondansetron HCl 4 mg Q4HP PRN IV 09/03/24 22:00 Enoxaparin Sodium 40 mg DAILY SC 09/04/24 10:00 Nitroglycerin 0.4 mg Q5MINP PRN SL 09/03/24 22:00 Morphine Sulfate 2 mg Q30M PRN IV 09/03/24 22:00 Albuterol 2.5 mg Q4HR NEB 09/03/24 22:00 09/03/24 23:46 2.5 MG Ipratropium [place] 0.5 mg Q4HR NEB 09/03/24 22:00 09/03/24 23:46 0.5 MG Methylprednisolone Sodium Succinate 40 mg BID IV 09/03/24 22:00 09/03/24 23:06 40 MG Diagnostic Test (Pha) 1 strip ACHS 09/04/24 07:00 Insulin Human Regular ACHS SC 09/04/24 07:00 Dextrose 50 ml UD PRN IV 09/03/24 22:30 Melatonin 5 mg ONCE@2200 PO 09/04/24 22:00 Donepezil HCl 10 mg DAILY PO 09/04/24 10:00 Atorvastatin Calcium 40 mg DAILY PO 09/04/24 10:00 Pantoprazole Sodium 40 mg DAILY IV 09/04/24 10:00 Amlodipine Besylate 5 mg DAILY PO 09/04/24 10:00 Exam Vital Signs Vital Signs Date Time Temp Pulse Resp B/P (MAP) Pulse Ox O2 Delivery O2 Flow Rate FiO2 09/04/24 00:07 98 24 122/92 (102) 94 09/03/24 22:44 3.0 32 09/03/24 20:17 Nasal Cannula* 09/03/24 20:00 98.0 98.0 General Appearance: Alert, mild distress HEENT: Atraumatic, PERRLA, EOMI Respiratory: Other (Diminished air exchange. Bilateral ronchi. ) Cardiovascular: Regular rate, Normal S1, Normal S2 Abdominal: Normal bowel sounds, Soft, No tenderness Extremities: No clubbing, No cyanosis, No edema Skin: No breakdown Neuro: Normal gait, Normal speech, Strength at 5/5 X4 ext Psych/Mental Status: Mental status NL, Mood NL Labs/Xrays Labs Test 09/03/24 17:04 09/03/24 16:03 Range/Units Lactic Acid Level 2.0 0.4-2.0 mmol/L White Blood Count 7.3 4.4-10.8 10^3/uL Red Blood Count 5.33 4.5-5.90 10^6/uL Hemoglobin 13.8 13.5-17.5 g/dL Hematocrit 41.8 41.0-53.0 % Mean Corpuscular Volume 78.3 L 80.0-100.0 fL Mean Corpuscular Hemoglobin 25.8 L 28.0-32.0 pg Mean Corpuscular Hemoglobin Concent 32.9 32.0-36.0 g/dL Red Cell Distribution Width 15.0 H 11.8-14.3 % Platelet Count 196 140-450 10^3/uL Mean Platelet Volume 7.5 6.9-10.8 fL Neutrophils (%) (Auto) 78.8 37.0-80.0 % Lymphocytes (%) (Auto) 12.2 10.0-50.0 % Monocytes (%) (Auto) 8.0 0.0-12.0 % Eosinophils (%) (Auto) 0.6 0.0-7.0 % Basophils (%) (Auto) 0.4 0.0-2.0 % Neutrophils # (Auto) 5.8 1.6-8.6 10 ^3/uL Lymphocytes # (Auto) 0.9 0.4-5.4 10 ^3/uL Monocytes # (Auto) 0.6 0-1.3 10 ^3/uL Eosinophils # (Auto) 0 0-0.8 10 ^3/uL Basophils # (Auto) 0 0-0.2 10 ^3/uL Nucleated Red Blood Cells 0.3 % Sodium Level 138 136-145 mmol/L Potassium Level 4.1 3.5-5.1 mmol/L Chloride Level 102 98-107 mmol/L Carbon Dioxide Level 27 20-31 mmol/L Anion Gap 9 5-15 Blood Urea Nitrogen 13 9-23 mg/dL Creatinine 0.82 0.700-1.30 mg/dL Glomerular Filtration Rate Calc 92 >90 mL/min BUN/Creatinine Ratio 15.9 10.0-20.0 Serum Glucose 113 H 74-106 mg/dL Calcium Level 9.8 8.7-10.4 mg/dL Assessment/Plan Assessment/Plan Acute respiratory failure with Hypoxia Acute COPD exacerbation Lung Cancer Hypertension DM Generalized weakness Plan Admit to telemetry Pulmonology consult. Bronchodilators. As needed supplemental oxygen to maintain O2 saturation greater than 93%. IV Steroids. IV Doxycycline. Incentive spirometry. Oncology consult. Continue home medication. Blood glucose checks ACHS with regular insulin sliding scale coverage Social service consult for palliative care consultation. Physical therapy evaluation GI ppx protonix / DVT ppx lovenox Plan discussed with: Patient, Spouse My Orders Orders - ETHAN FORD NP Procedure Category Date Status Time Admit ADMIT 09/03/24 Transmitted 21:49 Code Status CODE 09/03/24 Transmitted 21:49 Vital Signs ANGELIQUE 09/03/24 In Process 21:49 Review Orders With ANGELIQUE 09/03/24 In Process Adm. 21:49 Encourage Activity As ANGELIQUE 09/03/24 In Process Tolerate 21:49 Consistent DIET 09/04/24 Transmitted Carb(Ccho)Diabetes Breakfast Oxygen By Face Mask RT 09/03/24 Transmitted 21:49 Docusate Sodium PHA 09/03/24 In Process Capsule (Colace 22:00 Acetaminophen Tablet PHA 09/03/24 In Process (Tylenol Tablet) 22:00 Notify Md Of Changes ANGELIQUE 09/03/24 In Process From Base 21:49 Advance Directive ANGELIQUE 09/03/24 In Process 21:49 Basic Metabolic Panel LAB 09/04/24 Logged 05:00 Basic Metabolic Panel LAB 09/05/24 Verified 05:00 Basic Metabolic Panel LAB 09/06/24 Verified 05:00 Basic Metabolic Panel LAB 09/07/24 Verified 05:00 Complete Blood Count LAB 09/04/24 Logged 05:00 Complete Blood Count LAB 09/05/24 Verified 05:00 Complete Blood Count LAB 09/06/24 Verified 05:00 Complete Blood Count LAB 09/07/24 Verified 05:00 Patient Condition ORDERS 09/03/24 Transmitted 21:49 Allergies ANGELIQUE 09/03/24 In Process 21:49 Hydrocodone-Acet PHA 09/03/24 In Process 5/325mg Tab ([place] 22:00 Ondansetron Hcl PHA 09/03/24 In Process (Zofran) 22:00 Enoxaparin Sodium PHA 09/04/24 In Process (Lovenox) 10:00 Nitroglycerin PHA 09/03/24 In Process Sublingual (Ntrostat 22:00 Morphine Sulfate PHA 09/03/24 In Process Injection 22:00 Stat Ekg For Chest ANGELIQUE 09/03/24 In Process Pain 21:49 Notify Md Of Changes ANGELIQUE 09/03/24 In Process From Base 21:49 Facility Operations Manager For ANGELIQUE 09/03/24 In Process 24 Hours 21:49 Emergency Dysrhythmia ANGELIQUE 09/03/24 In Process Protocol 21:49 Rhythm Strips Once ANGELIQUE 09/03/24 In Process Every Shift 21:49 Oxygen By Nasal RT 09/03/24 Transmitted Cannula 21:49 Albuterol Medneb PHA 09/03/24 In Process (Ventolin Medneb) 22:00 Ipratropium Medneb PHA 09/03/24 In Process (Atrovent Medneb) 22:00 Methylprednisolone PHA 09/03/24 In Process Sod Succ (Solu Medrol 22:00 *Consult CONS 09/03/24 Transmitted / 21:49 * Hematology/Oncology CONS 09/03/24 Transmitted Consult 21:49 * Rubbing Bed Operator CONS 09/03/24 Transmitted Consult Glucose Blood PHA 09/04/24 In Process (Accu-Chek Comfort 07:00 Insulin R (Human) PHA 09/04/24 In Process (Insulin R) 07:00 Dextrose 50% Syringe PHA 09/03/24 In Process 22:30 * Dietary Consult CONS 09/03/24 Transmitted 22:23 Melatonin (Melatonin) PHA 09/04/24 In Process 22:00 Donepezil Tablet PHA 09/04/24 In Process (Aricept Tablet) 10:00 Atorvastatin (Lipitor) PHA 09/04/24 In Process 10:00 Pantoprazole PHA 09/04/24 In Process (Protonix) 10:00 Amlodipine Tablet PHA 09/04/24 In Process (Norvasc Tablet) 10:00 Date of Service: Sep 04, 2024 Billing Provider: BENJAMIN BROWN MD Common Visit Codes: NOT BILLABLE BENJAMIN BROWN MD 09/05/24 1419: Review of Systems Allergies: Coded Allergies: NO KNOWN ALLERGIES (Unverified , 09/05/23) Assessment/Plan Assessment/Plan Patient is seen and evaluated. Discussed with the family at bedside. Patient's chart is reviewed and he is admitted by nurse practitioner. I agree with the nurse practitioner's evaluation, documentation, assessment and care plan as outlined. Plan discussed with: Other ETHAN FORD NP Sep 04, 2024 02:16 BENJMAIN BROWN MD Sep 05, 2024 14:19
[2024-09-04] MEDS: ACCU-CHEK COMFORT CURVE STRIP VI SCH (06:30)
[2024-09-04] MEDS: InsuLIN REG 1unit/0.01ml Soln (100units/ml) SC SCH (06:32)
[2024-09-04 06:36] LABS: Basophils # (auto) 0 10 ^3/uL (0-0.2); Eosinophils # (auto) 0 10 ^3/uL (0-0.8); Lymphocytes # (auto) 0.3 10 ^3/uL (0.4-5.4); Mean Corpuscular Hgb Conc. 33.6 g/dL (32.0-36.0); Monocytes # (auto) 0 10 ^3/uL (0-1.3); Neutrophils % (auto) 92.2 % (37.0-80.0)
[2024-09-04 06:43] LABS: Hematocrit 35.8 % (41.0-53.0); Lymphocytes % (auto) 6.7 % (10.0-50.0); Mean Corpuscular Hemoglobin 26.1 pg (28.0-32.0); Mean Corpuscular Volume 77.8 fL (80.0-100.0); Monocytes % (auto) 1.1 % (0.0-12.0); Neutrophils # (auto) 3.9 10 ^3/uL (1.6-8.6); Platelet Count (auto) 260 10^3/uL (140-450); Red Cell Distribution Width 14.8 % (11.8-14.3); White Blood Cell 4.3 10^3/uL (4.4-10.8)
[2024-09-04 06:50] LABS: Anion Gap 8 (5-15); Carbon Dioxide 28 mmol/L (20-31); Chloride 102 mmol/L (98-107); Sodium 138 mmol/L (136-145)
[2024-09-04 06:51] LABS: Calcium 9.6 mg/dL (8.7-10.4)
[2024-09-04 06:56] LABS: BUN/Creatinine Ratio 14.7 (10.0-20.0); Blood Urea Nitrogen 14 mg/dL (9-23)
[2024-09-04 06:59] LABS: Glucose 160 mg/dL (74-106)
[2024-09-04] MEDS: PANTOPRAZOLE 40 MG/10 ML VIAL INJ IV SCH (09:34)
[2024-09-04] MEDS: ATORVASTATIN 20 MG TAB PO SCH (09:34)
[2024-09-04] MEDS: ENOXAPARIN SOD 40 MG/0.4 ML SYRINGE SC SCH (09:35)
[2024-09-04] MEDS: amLODIPine BESYLATE 5 MG TAB PO SCH (09:35)
[2024-09-04] MEDS: DONEPEZIL HYDROCHLORIDE 5 MG TAB PO SCH (09:35)
[2024-09-04] MEDS ORDERED: SODIUM CHLORIDE 0.9% 1,000 ML IV SCH (14:45)
[2024-09-04] MEDS: D5W/SOD CHLO 0.9% 1,000 ML IV SCH (15:53)
[2024-09-04] MEDS: MELATONIN 5 MG TAB PO SCH (21:54)
--- NOTE | 2024-09-04 23:39 | DVHPN2 ---
Progress Note - Dictate Date Seen: Sep 04, 2024 Medical Necessity Reason Pt with a Central, PICC or Fol: No Subjective Patient seen and examined at bedside. Remains on supplemental oxygen Overnight events reviewed. vital signs Vital Sign Date Time Temp Pulse Resp B/P (MAP) Pulse Ox O2 Delivery O2 Flow Rate FiO2 09/04/24 22:37 101 20 98 09/04/24 22:29 Nasal Cannula 2.0 09/04/24 22:29 28 09/04/24 16:40 97.9 128/94 (105) 97.9 Total Intake and Output 09/03/24 09/03/24 09/04/24 15:00 23:00 07:00 Intake Total 50 ml 0 ml Balance 50 ml 0 ml medications Current Medications Medications Dose Ordered Sig/Xi Route Start Time Stop Time Status Last Admin Dose Admin Docusate Sodium 100 mg BIDPRN PRN PO 09/03/24 22:00 Acetaminophen 650 mg Q6HP PRN PO 09/03/24 22:00 Acetaminophen/ Hydrocodone Bitart 1 tab Q4HP PRN PO 09/03/24 22:00 Ondansetron HCl 4 mg Q4HP PRN IV 09/03/24 22:00 Enoxaparin Sodium 40 mg DAILY SC 09/04/24 10:00 09/04/24 09:35 40 MG Nitroglycerin 0.4 mg Q5MINP PRN SL 09/03/24 22:00 Morphine Sulfate 2 mg Q30M PRN IV 09/03/24 22:00 Albuterol 2.5 mg Q4HR NEB 09/03/24 22:00 09/04/24 22:28 2.5 MG Ipratropium [place] 0.5 mg Q4HR NEB 09/03/24 22:00 09/04/24 22:28 0.5 MG Methylprednisolone Sodium Succinate 40 mg BID IV 09/03/24 22:00 09/04/24 21:42 40 MG Diagnostic Test (Pha) 1 strip ACHS 09/04/24 07:00 09/04/24 21:53 1 STRIP Insulin Human Regular ACHS SC 09/04/24 07:00 09/04/24 06:32 2 UNITS Dextrose 50 ml UD PRN IV 09/03/24 22:30 Melatonin 5 mg ONCE@2200 PO 09/04/24 22:00 Donepezil HCl 10 mg DAILY PO 09/04/24 10:00 09/04/24 09:35 10 MG Atorvastatin Calcium 40 mg DAILY PO 09/04/24 10:00 09/04/24 09:34 40 MG Pantoprazole Sodium 40 mg DAILY IV 09/04/24 10:00 09/04/24 09:34 40 MG Amlodipine Besylate 5 mg DAILY PO 09/04/24 10:00 09/04/24 09:35 5 MG Dextrose/Sodium Chloride 1,000 ml @ 75 mls/hr [id number] IV 09/04/24 15:00 09/04/24 15:53 75 MLS/HR objective Gen.: Patient lying in bed in no apparent distress. On supplemental oxygen. Head: Normocephalic, atraumatic. Eyes: EOMI/PERRLA. Ears: Normal hearing. Normal anatomy. Neck/trachea: Trachea midline, supple. Nose: Normal external anatomy. Mouth: Moist mucous membranes. Chest: Decreased air entry bilaterally. No wheezing or rhonchi. Cardiovascular: Positive S1, positive S2. Regular rate and rhythm. Abdomen: Positive bowel sounds in all 4 quadrants. Soft, non-tender, non- distended. : Deferred. Rectal: Deferred. Skin: Warm, dry. Intact. Extremities: 2+ radial pulses bilaterally. No lower extremity edema. Neuro: Awake, alert, oriented x3. No gross motor or sensory deficits. Cranial nerves II through XII intact. Gait not assessed. laboratory and microbiology Laboratory Tests 09/04/24 06:07 Test 09/04/24 06:07 Range/Units Serum Glucose 160 H 74-106 mg/dL Assessment/Plan Impression: Acute hypoxic respiratory failure Dependence on supplemental oxygen COPD exacerbation Lung cancer Nicotine dependence Marijuana use. Events: Remains on supplemental oxygen, 2 LPM NC Taper O2 as tolerated Swallow evaluation. Head of bed elevation Aspiration precautions Continue bronchodilators Continue antibiotics Continue steroids IV fluids at 75 ml/hr. Labs and imaging reviewed. Rest of plan as noted below. Plan: Supplemental oxygen Titrate to keep O2 sats above 92%. Continue bronchodilators. Continue antibiotics IV steroids Monitor renal function. Monitor electrolytes. Supplement as necessary. Monitor ins and outs. Smoking cessation discussed for greater than 10 minutes Counseled against marijuana use. DVT prophylaxis. Prognosis: Guarded given patient's multiple co-morbidities. Rest of plan per hospitalist and other consultants. Thank you, LUIS Stewart, for allowing me to participate in this patient's care. Further recommendations will depend on the patient's clinical course. Please do not hesitate to contact me if you have any questions or concerns. This medical document was created using an electronic medical record system with [employer] dictation system. Although these documentations are being carefully reviewed, there may still be some phonetic and typographical changes. The errors are purely typographical, due to imperfection on the software program, and do not reflect any compromise in the patient's medical care. Dietary Evaluation Review Comments: Encourage PO intake to meet 75% of his needs, Encourage Glucerna Supplement BID Expected Outcomes/Goals: Gradual Weight Gain Plan discussed with: Patient, Other (FELI Damon) EDY LEUNG MD Sep 04, 2024 23:39
[2024-09-05] VITALS (16 sets, daily range): BP systolic 122–138; BP diastolic 86–92; PULSE 93–105; RESP 16–24; TEMP 36.4; O2SAT 95–100
[2024-09-05 07:53] LABS: Basophils # (auto) 0 10 ^3/uL (0-0.2); Basophils % (auto) 0.1 % (0.0-2.0); Eosinophils # (auto) 0 10 ^3/uL (0-0.8); Lymphocytes # (auto) 0.4 10 ^3/uL (0.4-5.4); Lymphocytes % (auto) 5.4 % (10.0-50.0); Monocytes # (auto) 0.3 10 ^3/uL (0-1.3)
[2024-09-05 07:56] LABS: Hematocrit 35.2 % (41.0-53.0); Hemoglobin 11.8 g/dL (13.5-17.5); Mean Corpuscular Hemoglobin 26.5 pg (28.0-32.0); Mean Corpuscular Hgb Conc. 33.6 g/dL (32.0-36.0); Mean Corpuscular Volume 78.8 fL (80.0-100.0); Monocytes % (auto) 4.2 % (0.0-12.0); Neutrophils # (auto) 6.5 10 ^3/uL (1.6-8.6); Neutrophils % (auto) 90.3 % (37.0-80.0); Platelet Count (auto) 249 10^3/uL (140-450); Red Blood Cells 4.46 10^6/uL (4.5-5.90); Red Cell Distribution Width 15.1 % (11.8-14.3); White Blood Cell 7.2 10^3/uL (4.4-10.8)
[2024-09-05 08:07] LABS: Chloride 107 mmol/L (98-107); Potassium 4.6 mmol/L (3.5-5.1); Sodium 140 mmol/L (136-145)
[2024-09-05 08:08] LABS: Anion Gap 5 (5-15); Calcium 9.1 mg/dL (8.7-10.4); Carbon Dioxide 28 mmol/L (20-31)
[2024-09-05 08:13] LABS: BUN/Creatinine Ratio 18.7 (10.0-20.0); Blood Urea Nitrogen 17 mg/dL (9-23)
[2024-09-05 08:15] LABS: Glucose 164 mg/dL (74-106)
[2024-09-05] MEDS ORDERED: AML5T PO (11:46)
[2024-09-05] MEDS ORDERED: ATOR20TA50 PO (11:46)
[2024-09-05] MEDS ORDERED: FAMO-161 PO (11:46)
[2024-09-05] MEDS ORDERED: PRED20TA2 PO (11:46)
[2024-09-05] MEDS ORDERED: ALB5IS NEB (11:46)
[2024-09-05] MEDS ORDERED: IPR002IS NEB (11:46)
[2024-09-05] MEDS ORDERED: CEFD300C2 PO (11:46)
--- NOTE | 2024-09-05 11:48 | DVHDS2 ---
Discharge Summary Date of Admission Sep 03, 2024 at 21:49 Date of Discharge: Sep 05, 2024 Labs/Diagnostic Data: Laboratory Results Test 09/05/24 07:17 09/05/24 05:24 09/03/24 17:04 White Blood Count 7.2 10^3/uL (4.4-10.8) Red Blood Count 4.46 10^6/uL (4.5-5.90) Hemoglobin 11.8 g/dL (13.5-17.5) Hematocrit 35.2 % (41.0-53.0) Mean Corpuscular Volume 78.8 fL (80.0-100.0) Mean Corpuscular Hemoglobin 26.5 pg (28.0-32.0) Mean Corpuscular Hemoglobin Concent 33.6 g/dL (32.0-36.0) Red Cell Distribution Width 15.1 % (11.8-14.3) Platelet Count 249 10^3/uL (140-450) Mean Platelet Volume 7.5 fL (6.9-10.8) Neutrophils (%) (Auto) 90.3 % (37.0-80.0) Lymphocytes (%) (Auto) 5.4 % (10.0-50.0) Monocytes (%) (Auto) 4.2 % (0.0-12.0) Eosinophils (%) (Auto) 0.0 % (0.0-7.0) Basophils (%) (Auto) 0.1 % (0.0-2.0) Neutrophils # (Auto) 6.5 10 ^3/uL (1.6-8.6) Lymphocytes # (Auto) 0.4 10 ^3/uL (0.4-5.4) Monocytes # (Auto) 0.3 10 ^3/uL (0-1.3) Eosinophils # (Auto) 0 10 ^3/uL (0-0.8) Basophils # (Auto) 0 10 ^3/uL (0-0.2) Nucleated Red Blood Cells 0.0 % Sodium Level 140 mmol/L (136-145) Potassium Level 4.6 mmol/L (3.5-5.1) Chloride Level 107 mmol/L (98-107) Carbon Dioxide Level 28 mmol/L (20-31) Anion Gap 5 (5-15) Blood Urea Nitrogen 17 mg/dL (9-23) Creatinine 0.91 mg/dL (0.700-1.30) Glomerular Filtration Rate Calc 88 mL/min (>90) BUN/Creatinine Ratio 18.7 (10.0-20.0) Serum Glucose 164 mg/dL (74-106) Calcium Level 9.1 mg/dL (8.7-10.4) POC Glucose 161 mg/dl (70-106) Lactic Acid Level 2.0 mmol/L (0.4-2.0) Other Laboratory Tests 09/05/24 07:17 Final Diagnosis/Problems List Metastatic lung cancer, acute on chronic hypoxemic respiratory failure, adult failure to thrive Discharge Disposition: Hospice - Home Discharge Instruct/Medications Diet: Consistent carbohydrate, Cardiac 2g Na,low cholest Activity: No Restrictions, As Tolerated Activity comment: With the assistance Follow Up/Referral: Hospice to further manage symptoms as appropriate. Dr. Fu oncologist as appropriate for lung cancer Medications: As prescribed and per discharge med reconciliation list/home medications New Medications: Cefdinir (Cefdinir) 300 Mg Cap 1 CAP PO BID, #14 CAP Famotidine (Pepcid AC) 20 Mg Tab 20 MG PO DAILY, #30 TAB Prednisone (Prednisone) 20 Mg Tab 20 MG PO BID, #10 MG Albuterol Sulfate (Ventolin) 2.5 Mg/0.5 Ml Nb 2.5 MG NEB Q4HR PRN, #30 EA Amlodipine Besylate (Norvasc Tablet) 5 Mg Tb 5 MG PO DAILY, #30 TAB Atorvastatin Calcium (Atorvastatin Calcium) 20 Mg Tab 20 MG PO DAILY, #30 TAB Ipratropium [place] (Ipratropium [place]) 0.02 % Yue 0.5 MG NEB Q4HR PRN, #30 EA Discharge Statement: "Patient was advised to return to the ER or call 911 if any headaches, dizziness, shortness of breath, chest pain, abdominal pain, bleeding, fevers, or worsening of medical condition. Patient was counseled about treatment plan, medications, possible side effects, patientverbalized understanding. All questions were answered to the best of my ability. This discharge took greater then 30 minutes in planning, reviewing documentation, counseling the patient, and discussing with other team members." ASSESSMENT ASSESSMENT Assessment Metastatic lung cancer, acute on chronic hypoxemic respiratory failure, adult failure to thrive BENJAMIN BROWN MD Sep 05, 2024 11:48
--- NOTE | 2024-09-05 14:21 | DVHPN2 ---
Progress Note - Dictate Date Seen: Sep 05, 2024 Medical Necessity Reason Pt with a Central, PICC or Fol: No Subjective Clinically stable. Hospice has accepted him. However patient failed swallow evaluation yesterday. He is NPO. Family wants him to be evaluated for PEG tube placement given the nutritional status. vital signs Vital Sign Date Time Temp Pulse Resp B/P (MAP) Pulse Ox O2 Delivery O2 Flow Rate FiO2 09/05/24 12:38 36.4 93 16 98 09/05/24 10:00 Oxymizer 3.0 09/05/24 10:00 N/A 09/05/24 07:00 122/86 (98) Total Intake and Output 09/04/24 09/04/24 09/05/24 15:00 23:00 07:00 Intake Total 30 ml 1300 ml Balance 30 ml 1300 ml medications Current Medications Medications Dose Ordered Sig/Xi Route Start Time Stop Time Status Last Admin Dose Admin Docusate Sodium 100 mg BIDPRN PRN PO 09/03/24 22:00 Acetaminophen 650 mg Q6HP PRN PO 09/03/24 22:00 Acetaminophen/ Hydrocodone Bitart 1 tab Q4HP PRN PO 09/03/24 22:00 Ondansetron HCl 4 mg Q4HP PRN IV 09/03/24 22:00 Nitroglycerin 0.4 mg Q5MINP PRN SL 09/03/24 22:00 Morphine Sulfate 2 mg Q30M PRN IV 09/03/24 22:00 Methylprednisolone Sodium Succinate 40 mg BID IV 09/03/24 22:00 09/05/24 11:40 40 MG Diagnostic Test (Pha) 1 strip ACHS 09/04/24 07:00 09/05/24 11:40 1 STRIP Insulin Human Regular ACHS SC 09/04/24 07:00 09/04/24 06:32 2 UNITS Dextrose 50 ml UD PRN IV 09/03/24 22:30 Melatonin 5 mg ONCE@2200 PO 09/04/24 22:00 Donepezil HCl 10 mg DAILY PO 09/04/24 10:00 09/04/24 09:35 10 MG Atorvastatin Calcium 40 mg DAILY PO 09/04/24 10:00 09/04/24 09:34 40 MG Pantoprazole Sodium 40 mg DAILY IV 09/04/24 10:00 09/05/24 11:39 40 MG Amlodipine Besylate 5 mg DAILY PO 09/04/24 10:00 09/04/24 09:35 5 MG Dextrose/Sodium Chloride 1,000 ml @ 75 mls/hr [id number] IV 09/04/24 15:00 09/05/24 02:31 75 MLS/HR Albuterol 2.5 mg Q6H NEB 09/05/24 18:00 UNV Ipratropium [place] 0.5 mg Q6H NEB 09/05/24 18:00 UNV objective Comfortable in bed. HEENT neck supple no JVD. Heart regular rate and rhythm S1-S2. Lungs fair air movement degraded breath sounds in the bases. No wheezing. Abdomen soft positive bowel sounds. Extremities no significant edema. laboratory and microbiology Laboratory Tests 09/05/24 07:17 Test 09/05/24 07:17 Range/Units Serum Glucose 164 H 74-106 mg/dL Assessment/Plan Continue present management as he is on. We will DC the Lovenox. Coagulation profile and labs in the morning. Gastroenterology consultation for evaluation and possible PEG tube placement for nutrition. Otherwise continue rest of supportive care and treatment. Further clinical management per clinical course. Discussed with the nurse regarding care plan. Problems(with codes): (1) Acute respiratory failure (2) Lung cancer (3) COPD exacerbation (4) Failure to thrive (5) Hypertension Dietary Evaluation Review Comments: Encourage PO intake to meet 75% of his needs, Encourage Glucerna Supplement BID Expected Outcomes/Goals: Gradual Weight Gain Plan discussed with: Other BENJAMIN BROWN MD Sep 05, 2024 14:21
[2024-09-05] MEDS ORDERED: IPRATROPIUM BROM 0.5 MG/2.5ML INH SOL NEB SCH (16:00)
[2024-09-05] MEDS ORDERED: ALBUTEROL SULF 2.5 MG/0.5ML(0.5%) NEB SOLN NEB SCH (16:00)
[2024-09-05] MEDS: ALBUTEROL SULF 2.5 MG/0.5ML(0.5%) NEB SOLN NEB SCH (18:53)
[2024-09-05] MEDS: IPRATROPIUM BROM 0.5 MG/2.5ML INH SOL NEB SCH (18:54)
--- NOTE | 2024-09-05 23:41 | DVHPN2 ---
Progress Note - Dictate Date Seen: Sep 05, 2024 Medical Necessity Reason Pt with a Central, PICC or Fol: No Subjective Patient seen and examined at bedside. Remains on supplemental oxygen Overnight events reviewed. vital signs Vital Sign Date Time Temp Pulse Resp B/P (MAP) Pulse Ox O2 Delivery O2 Flow Rate FiO2 09/05/24 18:40 95 20 98 09/05/24 18:34 Nasal Cannula 2.0 09/05/24 18:34 28 09/05/24 13:00 97.4 131/87 (102) 97.4 Total Intake and Output 09/04/24 09/04/24 09/05/24 15:00 23:00 07:00 Intake Total 30 ml 1300 ml Balance 30 ml 1300 ml medications Current Medications Medications Dose Ordered Sig/Xi Route Start Time Stop Time Status Last Admin Dose Admin Docusate Sodium 100 mg BIDPRN PRN PO 09/03/24 22:00 Acetaminophen 650 mg Q6HP PRN PO 09/03/24 22:00 Acetaminophen/ Hydrocodone Bitart 1 tab Q4HP PRN PO 09/03/24 22:00 Ondansetron HCl 4 mg Q4HP PRN IV 09/03/24 22:00 Nitroglycerin 0.4 mg Q5MINP PRN SL 09/03/24 22:00 Morphine Sulfate 2 mg Q30M PRN IV 09/03/24 22:00 Methylprednisolone Sodium Succinate 40 mg BID IV 09/03/24 22:00 09/05/24 21:35 40 MG Diagnostic Test (Pha) 1 strip ACHS 09/04/24 07:00 09/05/24 21:34 1 STRIP Insulin Human Regular ACHS SC 09/04/24 07:00 09/04/24 06:32 2 UNITS Dextrose 50 ml UD PRN IV 09/03/24 22:30 Melatonin 5 mg ONCE@2200 PO 09/04/24 22:00 Donepezil HCl 10 mg DAILY PO 09/04/24 10:00 09/04/24 09:35 10 MG Atorvastatin Calcium 40 mg DAILY PO 09/04/24 10:00 09/04/24 09:34 40 MG Pantoprazole Sodium 40 mg DAILY IV 09/04/24 10:00 09/05/24 11:39 40 MG Amlodipine Besylate 5 mg DAILY PO 09/04/24 10:00 09/04/24 09:35 5 MG Dextrose/Sodium Chloride 1,000 ml @ 75 mls/hr [id number] IV 09/04/24 15:00 09/05/24 20:35 75 MLS/HR Albuterol 2.5 mg Q6H NEB 09/05/24 18:00 09/05/24 18:53 2.5 MG Ipratropium [place] 0.5 mg Q6H NEB 09/05/24 18:00 09/05/24 18:54 0.5 MG objective Gen.: Patient lying in bed in no apparent distress. On supplemental oxygen. Head: Normocephalic, atraumatic. Eyes: EOMI/PERRLA. Ears: Normal hearing. Normal anatomy. Neck/trachea: Trachea midline, supple. Nose: Normal external anatomy. Mouth: Moist mucous membranes. Chest: Decreased air entry bilaterally. No wheezing or rhonchi. Cardiovascular: Positive S1, positive S2. Regular rate and rhythm. Abdomen: Positive bowel sounds in all 4 quadrants. Soft, non-tender, non- distended. : Deferred. Rectal: Deferred. Skin: Warm, dry. Intact. Extremities: 2+ radial pulses bilaterally. No lower extremity edema. Neuro: Awake, alert, oriented x3. No gross motor or sensory deficits. Cranial nerves II through XII intact. Gait not assessed. laboratory and microbiology Laboratory Tests 09/05/24 07:17 Test 09/05/24 07:17 Range/Units Serum Glucose 164 H 74-106 mg/dL Assessment/Plan Impression: Acute hypoxic respiratory failure Dependence on supplemental oxygen COPD exacerbation Lung cancer Nicotine dependence Marijuana use. Events: Remains on supplemental oxygen, 2 LPM NC Taper O2 as tolerated Failed swallow evaluation. GI evaluation for PEG. Head of bed elevation Aspiration precautions Continue bronchodilators Continue antibiotics Continue steroids IV fluids with D5W at 75 ml/hr. Hospice eval. Labs and imaging reviewed. Rest of plan as noted below. Plan: Supplemental oxygen Titrate to keep O2 sats above 92%. Continue bronchodilators. Continue antibiotics IV steroids Monitor renal function. Monitor electrolytes. Supplement as necessary. Monitor ins and outs. Smoking cessation discussed for greater than 10 minutes Counseled against marijuana use. DVT prophylaxis. Prognosis: Guarded given patient's multiple co-morbidities. Rest of plan per hospitalist and other consultants. Thank you, LUIS Stewart, for allowing me to participate in this patient's care. Further recommendations will depend on the patient's clinical course. Please do not hesitate to contact me if you have any questions or concerns. This medical document was created using an electronic medical record system with [employer] dictation system. Although these documentations are being carefully reviewed, there may still be some phonetic and typographical changes. The errors are purely typographical, due to imperfection on the software program, and do not reflect any compromise in the patient's medical care. Dietary Evaluation Review Comments: Encourage PO intake to meet 75% of his needs, Encourage Glucerna Supplement BID Expected Outcomes/Goals: Gradual Weight Gain Plan discussed with: Patient, Other (FELI Chow) EDY LEUNG MD Sep 05, 2024 23:41
[2024-09-06] VITALS (19 sets, daily range): BP systolic 129–152; BP diastolic 91–101; PULSE 92–106; RESP 16–22; TEMP 97.4–98.1; O2SAT 93–100
[2024-09-06 05:57] LABS: Basophils # (auto) 0 10 ^3/uL (0-0.2); Eosinophils # (auto) 0 10 ^3/uL (0-0.8); Hemoglobin 11.1 g/dL (13.5-17.5); Lymphocytes # (auto) 0.3 10 ^3/uL (0.4-5.4); Mean Corpuscular Hgb Conc. 33.9 g/dL (32.0-36.0); Monocytes # (auto) 0.3 10 ^3/uL (0-1.3); Nucleated Red Blood Cells % 0.1 %; White Blood Cell 8.2 10^3/uL (4.4-10.8)
[2024-09-06 05:59] LABS: Hematocrit 32.8 % (41.0-53.0); Lymphocytes % (auto) 3.3 % (10.0-50.0); Mean Corpuscular Hemoglobin 26.8 pg (28.0-32.0); Mean Corpuscular Volume 79.2 fL (80.0-100.0); Monocytes % (auto) 3.5 % (0.0-12.0); Neutrophils # (auto) 7.7 10 ^3/uL (1.6-8.6); Neutrophils % (auto) 93.2 % (37.0-80.0); Platelet Count (auto) 239 10^3/uL (140-450); Red Blood Cells 4.14 10^6/uL (4.5-5.90); Red Cell Distribution Width 14.5 % (11.8-14.3)
[2024-09-06 06:13] LABS: INR 1.14 (0.9-1.15); Partial Thromboplastin Time 29.9 SEC (24.5-34.5); Prothrombin Time 11.9 sec (9.3-11.8)
[2024-09-06 06:16] LABS: Calcium 8.8 mg/dL (8.7-10.4); Potassium 4.4 mmol/L (3.5-5.1); Sodium 141 mmol/L (136-145)
[2024-09-06 06:17] LABS: Anion Gap 6 (5-15); Carbon Dioxide 27 mmol/L (20-31)
[2024-09-06 06:22] LABS: BUN/Creatinine Ratio 16.1 (10.0-20.0); Blood Urea Nitrogen 14 mg/dL (9-23)
[2024-09-06 06:27] LABS: Chloride 108 mmol/L (98-107); Glucose 145 mg/dL (74-106)
--- NOTE | 2024-09-06 12:19 | DVHSR ---
APPROVED REPORT EXAM: Two-dimensional and M-mode echocardiogram with Doppler and color Doppler. Blood Pressure: 122/86 mmHg INDICATION htn/lung cancer/dysphagia RISK FACTORS Height: 5'3, Weight: 107 DIMENSIONS LVDd4.1 (3.8-5.7cm)LA (2D)4.1 (1.9-4.0cm)Aortic Root4.0 (2.0-3.7cm) LVDs2.8 (2.5-4.0cm)LA (MM) (1.9-4.0cm)Aortic Cusp Exc2.0 (1.5-2.0cm) EF (%) 68.0 (55-70%)Rt. Atrium3.6 (1.9-4.0cm)Asc. Aorta3.9 cm IVSd1.0 (0.7-1.1cm)RV (D)3.1 (1.8-2.4cm) PWd0.9 (0.7-1.1cm) Mitral Valve MitralMitral Stenosis E wave0.57m/sMV Mean GR.mmHg A wave1.13m/sMV Peak GR.113mmHg E/A ratio0.52D MVAcm2 DECEL [id number] 1/2 Tim[place] Aortic Valve Aortic ValveAortic Stenosis V11.26m/Tevin Mean GR.3mmHg V21.13m/Tevin Peak GR.5mmHg LVOT Diameter2.3 (1.8-2.4cm)Doppler AVA4.63cm2 Tricuspid Valve TR Velocity2.66m/s [id number] Conclusion lvef 70% by visual estimate sigmoid septum normal rv function but enlarged left atrium enlarged mild mitral regurg mild tricupsid regurg
--- NOTE | 2024-09-06 15:09 | DVHPN2 ---
Progress Note - Dictate Date Seen: Sep 06, 2024 Medical Necessity Reason Pt with a Central, PICC or Fol: No Subjective Clinically stable. Hospice has accepted him. However patient failed swallow evaluation yesterday. He is NPO. Waiting for emergency management director to evaluate him for PEG tube placement. vital signs Vital Sign Date Time Temp Pulse Resp B/P (MAP) Pulse Ox O2 Delivery O2 Flow Rate FiO2 09/06/24 12:17 106 20 100 09/06/24 10:00 Nasal Cannula 3.0 09/06/24 10:00 32 09/06/24 05:00 97.9 139/91 (107) 97.9 Total Intake and Output 09/05/24 09/05/24 09/06/24 15:00 23:00 07:00 Intake Total 0 ml 0 ml Output Total 2 ml 200 ml Balance -2 ml -200 ml medications Current Medications Medications Dose Ordered Sig/Xi Route Start Time Stop Time Status Last Admin Dose Admin Docusate Sodium 100 mg BIDPRN PRN PO 09/03/24 22:00 Acetaminophen 650 mg Q6HP PRN PO 09/03/24 22:00 Acetaminophen/ Hydrocodone Bitart 1 tab Q4HP PRN PO 09/03/24 22:00 Ondansetron HCl 4 mg Q4HP PRN IV 09/03/24 22:00 Nitroglycerin 0.4 mg Q5MINP PRN SL 09/03/24 22:00 Morphine Sulfate 2 mg Q30M PRN IV 09/03/24 22:00 Methylprednisolone Sodium Succinate 40 mg BID IV 09/03/24 22:00 09/06/24 10:44 40 MG Diagnostic Test (Pha) 1 strip ACHS 09/04/24 07:00 09/06/24 10:52 1 STRIP Insulin Human Regular ACHS SC 09/04/24 07:00 09/04/24 06:32 2 UNITS Dextrose 50 ml UD PRN IV 09/03/24 22:30 Melatonin 5 mg ONCE@2200 PO 09/04/24 22:00 Donepezil HCl 10 mg DAILY PO 09/04/24 10:00 09/04/24 09:35 10 MG Atorvastatin Calcium 40 mg DAILY PO 09/04/24 10:00 09/04/24 09:34 40 MG Pantoprazole Sodium 40 mg DAILY IV 09/04/24 10:00 09/06/24 10:43 40 MG Amlodipine Besylate 5 mg DAILY PO 09/04/24 10:00 09/04/24 09:35 5 MG Dextrose/Sodium Chloride 1,000 ml @ 75 mls/hr [id number] IV 09/04/24 15:00 09/06/24 12:17 75 MLS/HR Albuterol 2.5 mg Q6H NEB 09/05/24 18:00 09/06/24 12:07 2.5 MG Ipratropium [place] 0.5 mg Q6H NEB 09/05/24 18:00 09/06/24 12:07 0.5 MG objective Comfortable in bed. HEENT neck supple no JVD. Heart regular rate and rhythm S1-S2. Lungs fair air movement degraded breath sounds in the bases. No wheezing. Abdomen soft positive bowel sounds. Extremities no significant edema. laboratory and microbiology Laboratory Tests 09/06/24 04:46 Test 09/06/24 04:46 Range/Units Serum Glucose 145 H 74-106 mg/dL Assessment/Plan Continue present management as he is on. Gastroenterology consultation pending for evaluation and PEG tube placement for nutrition. Discussed with the patient's daughter Tressa at bedside over the phone along with the nurse at bedside regarding PEG tube placement, risks, benefits, alternatives associated with PEG tube placement. Given the patient failed swallow evaluation and malnourishment it is felt benefit of PEG tube placement outweigh the risks , therefore daughter wants to proceed with a PEG tube. Told her about the risk of respiratory distress/respiratory failure and possible need for BiPAP/even intubation during or post PEG tube placement given his lung issues. She has verbalized understanding of this and wants to proceed with a PEG tube placement. Otherwise continue rest of supportive care and treatment. Further clinical management per clinical course. Discussed with the nurse regarding care plan. Problems(with codes): (1) Lung cancer (2) COPD exacerbation (3) Failure to thrive (4) Hypertension (5) Acute respiratory failure Dietary Evaluation Review Comments: Encourage PO intake to meet 75% of his needs, Encourage Glucerna Supplement BID Expected Outcomes/Goals: Gradual Weight Gain Plan discussed with: BENJAMIN Kim MD Sep 06, 2024 15:09
--- NOTE | 2024-09-06 23:50 | DVHPN2 ---
Progress Note - Dictate Date Seen: Sep 06, 2024 Medical Necessity Reason Pt with a Central, PICC or Fol: No Subjective Patient seen and examined at bedside. Remains on supplemental oxygen Overnight events reviewed. vital signs Vital Sign Date Time Temp Pulse Resp B/P (MAP) Pulse Ox O2 Delivery O2 Flow Rate FiO2 09/06/24 21:49 92 18 139/99 97 4.0 36 09/06/24 21:00 97.9 97.9 09/06/24 18:21 Nasal Cannula* Total Intake and Output 09/05/24 09/05/24 09/06/24 14:59 22:59 06:59 Intake Total 0 ml 0 ml Output Total 2 ml 200 ml Balance -2 ml -200 ml medications Current Medications Medications Dose Ordered Sig/Xi Route Start Time Stop Time Status Last Admin Dose Admin Docusate Sodium 100 mg BIDPRN PRN PO 09/03/24 22:00 Acetaminophen 650 mg Q6HP PRN PO 09/03/24 22:00 Acetaminophen/ Hydrocodone Bitart 1 tab Q4HP PRN PO 09/03/24 22:00 Ondansetron HCl 4 mg Q4HP PRN IV 09/03/24 22:00 Nitroglycerin 0.4 mg Q5MINP PRN SL 09/03/24 22:00 Morphine Sulfate 2 mg Q30M PRN IV 09/03/24 22:00 Methylprednisolone Sodium Succinate 40 mg BID IV 09/03/24 22:00 09/06/24 21:16 40 MG Diagnostic Test (Pha) 1 strip ACHS 09/04/24 07:00 09/06/24 21:17 1 STRIP Insulin Human Regular ACHS SC 09/04/24 07:00 09/04/24 06:32 2 UNITS Dextrose 50 ml UD PRN IV 09/03/24 22:30 Melatonin 5 mg ONCE@2200 PO 09/04/24 22:00 Donepezil HCl 10 mg DAILY PO 09/04/24 10:00 09/04/24 09:35 10 MG Atorvastatin Calcium 40 mg DAILY PO 09/04/24 10:00 09/04/24 09:34 40 MG Pantoprazole Sodium 40 mg DAILY IV 09/04/24 10:00 09/06/24 10:43 40 MG Amlodipine Besylate 5 mg DAILY PO 09/04/24 10:00 09/04/24 09:35 5 MG Dextrose/Sodium Chloride 1,000 ml @ 75 mls/hr [id number] IV 09/04/24 15:00 09/06/24 12:17 75 MLS/HR Albuterol 2.5 mg Q6H NEB 09/05/24 18:00 09/06/24 18:27 2.5 MG Ipratropium [place] 0.5 mg Q6H NEB 09/05/24 18:00 09/06/24 18:27 0.5 MG objective Gen.: Patient lying in bed in no apparent distress. On supplemental oxygen. Head: Normocephalic, atraumatic. Eyes: EOMI/PERRLA. Ears: Normal hearing. Normal anatomy. Neck/trachea: Trachea midline, supple. Nose: Normal external anatomy. Mouth: Moist mucous membranes. Chest: Decreased air entry bilaterally. No wheezing or rhonchi. Cardiovascular: Positive S1, positive S2. Regular rate and rhythm. Abdomen: Positive bowel sounds in all 4 quadrants. Soft, non-tender, non- distended. : Deferred. Rectal: Deferred. Skin: Warm, dry. Intact. Extremities: 2+ radial pulses bilaterally. No lower extremity edema. Neuro: Awake, alert, oriented x3. No gross motor or sensory deficits. Cranial nerves II through XII intact. Gait not assessed. laboratory and microbiology Laboratory Tests 09/06/24 04:46 Test 09/06/24 04:46 Range/Units Serum Glucose 145 H 74-106 mg/dL Assessment/Plan Impression: Acute hypoxic respiratory failure Dependence on supplemental oxygen COPD exacerbation Lung cancer Nicotine dependence Marijuana use. Events: Remains on supplemental oxygen, 4 LPM NC Taper O2 as tolerated Failed swallow evaluation. Plan for PEG by GI. Head of bed elevation Aspiration precautions Continue bronchodilators Continue antibiotics Continue steroids NTS PRN. IV fluids with D5W at 75 ml/hr. Hospice eval. Labs and imaging reviewed. Rest of plan as noted below. Plan: Supplemental oxygen Titrate to keep O2 sats above 92%. Continue bronchodilators. Continue antibiotics IV steroids Monitor renal function. Monitor electrolytes. Supplement as necessary. Monitor ins and outs. Smoking cessation discussed for greater than 10 minutes Counseled against marijuana use. DVT prophylaxis. Prognosis: Guarded given patient's multiple co-morbidities. Rest of plan per hospitalist and other consultants. Thank you, LUIS Stewart, for allowing me to participate in this patient's care. Further recommendations will depend on the patient's clinical course. Please do not hesitate to contact me if you have any questions or concerns. This medical document was created using an electronic medical record system with [employer] dictation system. Although these documentations are being carefully reviewed, there may still be some phonetic and typographical changes. The errors are purely typographical, due to imperfection on the software program, and do not reflect any compromise in the patient's medical care. Dietary Evaluation Review Comments: Encourage PO intake to meet 75% of his needs, Encourage Glucerna Supplement BID Expected Outcomes/Goals: Gradual Weight Gain Plan discussed with: Patient, Other (FELI Chow) EDY LEUNG MD Sep 06, 2024 23:50
[2024-09-07] VITALS (17 sets, daily range): BP systolic 113–136; BP diastolic 79–97; PULSE 89–100; RESP 18–22; TEMP 36.6; O2SAT 94–100
[2024-09-07 06:58] LABS: Chloride 106 mmol/L (98-107); Potassium 4.3 mmol/L (3.5-5.1); Sodium 140 mmol/L (136-145)
[2024-09-07 06:59] LABS: Anion Gap 12 (5-15); Basophils # (auto) 0 10 ^3/uL (0-0.2); Basophils % (auto) 0.1 % (0.0-2.0); Calcium 9.4 mg/dL (8.7-10.4); Carbon Dioxide 22 mmol/L (20-31); Eosinophils # (auto) 0 10 ^3/uL (0-0.8); Hemoglobin 12.1 g/dL (13.5-17.5); Lymphocytes # (auto) 0.2 10 ^3/uL (0.4-5.4); Red Cell Distribution Width 14.9 % (11.8-14.3)
[2024-09-07 07:02] LABS: Hematocrit 35.4 % (41.0-53.0); Lymphocytes % (auto) 2.4 % (10.0-50.0); Mean Corpuscular Hemoglobin 27.1 pg (28.0-32.0); Mean Corpuscular Hgb Conc. 34.2 g/dL (32.0-36.0); Mean Corpuscular Volume 79.3 fL (80.0-100.0); Monocytes # (auto) 0.2 10 ^3/uL (0-1.3); Monocytes % (auto) 2.6 % (0.0-12.0); Neutrophils # (auto) 8.6 10 ^3/uL (1.6-8.6); Neutrophils % (auto) 94.9 % (37.0-80.0); Platelet Count (auto) 240 10^3/uL (140-450); Red Blood Cells 4.46 10^6/uL (4.5-5.90); White Blood Cell 9.1 10^3/uL (4.4-10.8)
[2024-09-07 07:04] LABS: BUN/Creatinine Ratio 16.5 (10.0-20.0); Blood Urea Nitrogen 13 mg/dL (9-23)
[2024-09-07 07:17] LABS: Glucose 131 mg/dL (74-106)
[2024-09-07 15:07] LABS: COVID19 ANTIGEN SOFIA FIA NEGATIVE (NEGATIVE); Rapid Influenza A Negative (Negative); Rapid Influenza B Negative (Negative)
--- NOTE | 2024-09-07 16:04 | DVHDS2 ---
Discharge Summary Date of Admission Sep 03, 2024 at 21:49 Date of Discharge: Sep 07, 2024 Labs/Diagnostic Data: Laboratory Results Test 09/07/24 13:05 09/07/24 11:13 09/07/24 04:35 09/06/24 04:46 Influenza Type A Antigen Negative (Negative) Influenza Type B Antigen Negative (Negative) SARS-CoV-2 Antigen (Rapid) Negative (NEGATIVE) POC Glucose 95 mg/dl (70-106) White Blood Count 9.1 10^3/uL (4.4-10.8) Red Blood Count 4.46 10^6/uL (4.5-5.90) Hemoglobin 12.1 g/dL (13.5-17.5) Hematocrit 35.4 % (41.0-53.0) Mean Corpuscular Volume 79.3 fL (80.0-100.0) Mean Corpuscular Hemoglobin 27.1 pg (28.0-32.0) Mean Corpuscular Hemoglobin Concent 34.2 g/dL (32.0-36.0) Red Cell Distribution Width 14.9 % (11.8-14.3) Platelet Count 240 10^3/uL (140-450) Mean Platelet Volume 7.5 fL (6.9-10.8) Neutrophils (%) (Auto) 94.9 % (37.0-80.0) Lymphocytes (%) (Auto) 2.4 % (10.0-50.0) Monocytes (%) (Auto) 2.6 % (0.0-12.0) Eosinophils (%) (Auto) 0.0 % (0.0-7.0) Basophils (%) (Auto) 0.1 % (0.0-2.0) Neutrophils # (Auto) 8.6 10 ^3/uL (1.6-8.6) Lymphocytes # (Auto) 0.2 10 ^3/uL (0.4-5.4) Monocytes # (Auto) 0.2 10 ^3/uL (0-1.3) Eosinophils # (Auto) 0 10 ^3/uL (0-0.8) Basophils # (Auto) 0 10 ^3/uL (0-0.2) Nucleated Red Blood Cells 0.0 % Sodium Level 140 mmol/L (136-145) Potassium Level 4.3 mmol/L (3.5-5.1) Chloride Level 106 mmol/L (98-107) Carbon Dioxide Level 22 mmol/L (20-31) Anion Gap 12 (5-15) Blood Urea Nitrogen 13 mg/dL (9-23) Creatinine 0.79 mg/dL (0.700-1.30) Glomerular Filtration Rate Calc 93 mL/min (>90) BUN/Creatinine Ratio 16.5 (10.0-20.0) Serum Glucose 131 mg/dL (74-106) Calcium Level 9.4 mg/dL (8.7-10.4) Prothrombin Time 11.9 sec (9.3-11.8) Prothrombin Time INR 1.14 (0.9-1.15) Activated Partial Thromboplast Time 29.9 SEC (24.5-34.5) Test 09/03/24 17:04 Lactic Acid Level 2.0 mmol/L (0.4-2.0) Other Laboratory Tests 09/07/24 04:35 Final Diagnosis/Problems List Aspiration pneumonitis, Metastatic lung cancer, acute on chronic hypoxemic respiratory failure, adult failure to thrive Discharge Disposition: Shelter Facility Discharge Instruct/Medications Diet: See Comment Diet comment: NPO due to aspiration Activity: No Restrictions, As Tolerated Activity comment: With the assistance Follow Up/Referral: JUNAID cabello Medications: per discharge med reconciliation list Discharge Statement: "Patient was advised to return to the ER or call 911 if any headaches, dizziness, shortness of breath, chest pain, abdominal pain, bleeding, fevers, or worsening of medical condition. Patient was counseled about treatment plan, medications, possible side effects, patientverbalized understanding. All questions were answered to the best of my ability. This discharge took greater then 30 minutes in planning, reviewing documentation, counseling the patient, and discussing with other team members." ASSESSMENT ASSESSMENT Assessment Aspiration pneumonitis, Metastatic lung cancer, acute on chronic hypoxemic respiratory failure, adult failure to thrive BENJAMIN BROWN MD Sep 07, 2024 16:04
--- NOTE | 2024-09-07 23:46 | DVHPN2 ---
Progress Note - Dictate Date Seen: Sep 07, 2024 Medical Necessity Reason Pt with a Central, PICC or Fol: No Subjective Patient seen and examined at bedside. Remains on supplemental oxygen Overnight events reviewed. vital signs Vital Sign Date Time Temp Pulse Resp B/P (MAP) Pulse Ox O2 Delivery O2 Flow Rate FiO2 09/07/24 20:06 97.7 89 18 133/94 (107) 97 97.7 09/07/24 18:36 Nasal Cannula* 4 36 Total Intake and Output 09/06/24 09/06/24 09/07/24 15:00 23:00 07:00 Intake Total 0 ml 0 ml Output Total 600 ml 100 ml Balance -600 ml -100 ml objective Gen.: Patient lying in bed in no apparent distress. On supplemental oxygen. Head: Normocephalic, atraumatic. Eyes: EOMI/PERRLA. Ears: Normal hearing. Normal anatomy. Neck/trachea: Trachea midline, supple. Nose: Normal external anatomy. Mouth: Moist mucous membranes. Chest: Decreased air entry bilaterally. No wheezing or rhonchi. Cardiovascular: Positive S1, positive S2. Regular rate and rhythm. Abdomen: Positive bowel sounds in all 4 quadrants. Soft, non-tender, non- distended. : Deferred. Rectal: Deferred. Skin: Warm, dry. Intact. Extremities: 2+ radial pulses bilaterally. No lower extremity edema. Neuro: Awake, alert, oriented x3. No gross motor or sensory deficits. Cranial nerves II through XII intact. Gait not assessed. laboratory and microbiology Laboratory Tests 09/07/24 04:35 Test 09/07/24 04:35 Range/Units Serum Glucose 131 H 74-106 mg/dL Assessment/Plan Impression: Acute hypoxic respiratory failure Dependence on supplemental oxygen COPD exacerbation Lung cancer Nicotine dependence Marijuana use. Events: Remains on supplemental oxygen, 4 LPM NC Taper O2 as tolerated Failed swallow evaluation. Head of bed elevation Aspiration precautions Continue bronchodilators Continue antibiotics Continue steroids NTS PRN. IV fluids with D5W at 75 ml/hr. Hospice eval. Plan for transfer to [place]. Labs and imaging reviewed. Rest of plan as noted below. Plan: Supplemental oxygen Titrate to keep O2 sats above 92%. Continue bronchodilators. Continue antibiotics IV steroids Monitor renal function. Monitor electrolytes. Supplement as necessary. Monitor ins and outs. Smoking cessation discussed for greater than 10 minutes Counseled against marijuana use. DVT prophylaxis. Prognosis: Guarded given patient's multiple co-morbidities. Rest of plan per hospitalist and other consultants. Thank you, LUIS Stewart, for allowing me to participate in this patient's care. Further recommendations will depend on the patient's clinical course. Please do not hesitate to contact me if you have any questions or concerns. This medical document was created using an electronic medical record system with [employer] dictation system. Although these documentations are being carefully reviewed, there may still be some phonetic and typographical changes. The errors are purely typographical, due to imperfection on the software program, and do not reflect any compromise in the patient's medical care. Dietary Evaluation Review Comments: Encourage PO intake to meet 75% of his needs, Encourage Glucerna Supplement BID Expected Outcomes/Goals: Gradual Weight Gain Plan discussed with: Patient, Other (FELI Chow) EDY LEUNG MD Sep 07, 2024 23:46
== END 2024-09-07 21:15 | DRG 177 ==
LOC: ER 15:35 → EDBD 15:35 → OVERFLOW 21:49 → TELE-WESTW 09-04 03:22
PROVIDERS: ADMIT Hospitalist; ATTEND Hospitalist
DX: J69.0 Pneumonitis due to inhalation of food and vomit (principal); J96.21 Acute and chronic respiratory failure with hypoxia; J44.1 Chronic obstructive pulmonary disease with (acute) exacerbation; C34.90 Malignant neoplasm of unspecified part of unspecified bronchus or lung; J44.0 Chronic obstructive pulmonary disease with (acute) lower respiratory infection; Z68.1 Body mass index [BMI] 19.9 or less, adult; Z20.822 Contact with and (suspected) exposure to COVID-19; E11.9 Type 2 diabetes mellitus without complications; F12.10 Cannabis abuse, uncomplicated; R62.7 Adult failure to thrive; F03.90 Unspecified dementia, unspecified severity, without behavioral disturbance, psychotic disturbance, mood disturbance, and anxiety; I10 Essential (primary) hypertension; F17.210 Nicotine dependence, cigarettes, uncomplicated; Z99.81 Dependence on supplemental oxygen; Z90.49 Acquired absence of other specified parts of digestive tract; Z79.899 Other long term (current) drug therapy; Z85.118 Personal history of other malignant neoplasm of bronchus and lung; Z92.3 Personal history of irradiation; Z71.6 Tobacco abuse counseling
CPT/HCPCS: 31720; 36415; 71045; 80048; 82962; 83605; 85025; 85610; 85730; 87040; 87070; 87077; 87186; 87205; 87426; 87804; 92610; 93005; 93306; 94640; 96365; 99291; G0378; J1815; J2470